=== PATIENT | male | born 1955 | race Caucasian/White ===

== ENCOUNTER 2018-07-15 16:10 | Outpatient (CLI) | payer MEDICAID, SELFPAY ==
--- NOTE | 2018-07-15 16:08 | DI.RAD_ITS ---
SYMPTOM/DIAGNOSIS: SOB, R06.02 PA AND LATERAL CHEST: No priors. The heart is normal in size. The lungs are clear. The mediastinal structures and pleura appear intact. CONCLUSION: Normal chest.
== END 2018-07-15 16:30 ==
PROVIDERS: PCP Family Medicine; Visit Provider Family Medicine
DX: R06.02 Shortness of breath (principal)
CPT/HCPCS: 71046

== ENCOUNTER 2019-01-10 02:53 | Outpatient (CLI) | payer MEDICAID, SELFPAY ==
[2019-01-10 09:54] LABS: ALT 28 U/L (12-78); AST 15 U/L (15-37); Albumin 3.7 g/dL (3.4-5.0); Alkaline Phosphatase 99 U/L (46-116); Anion Gap 8.8 mmol/L (3-11); BUN 15 mg/dL (7-18); Bilirubin, Total 0.7 mg/dL (0.2-1.0); CO2 28.2 mmol/L (21.0-32.0); CREATININE 0.81 mg/dL (0.70-1.30); Calcium 9.6 mg/dL (8.5-10.1); Chloride 99 mmol/L (98-107); Cholesterol 213 mg/dL (50-200); Glucose 101 mg/dL (70-100); HDL Cholesterol 42 mg/dL (40-60); LDL CHOLESTEROL 148 mg/dL (<100); Sodium 136 mmol/L (136-145); Total Protein 7.6 g/dL (6.4-8.2); Triglyceride 119 mg/dL (30-150)
== END 2019-01-10 03:13 ==
PROVIDERS: PCP Family Medicine; Visit Provider Family Medicine
DX: I10 Essential (primary) hypertension (principal)
CPT/HCPCS: 36415; 80053; 80061; 83721

== ENCOUNTER 2021-01-15 02:07 | Outpatient (CLI) | payer MEDICAID, SELFPAY ==
[2021-01-15 12:55] LABS: ALT 29 U/L (16-63); AST 14 U/L (15-37); Albumin 3.9 g/dL (3.4-5.0); Alkaline Phosphatase 104 U/L (46-116); Anion Gap 11.6 mmol/L (3-11); BUN 17 mg/dL (7-18); Bilirubin, Total 0.7 mg/dL (0.2-1.0); CO2 27.4 mmol/L (21.0-32.0); CREATININE 0.9 mg/dL (0.70-1.30); Calcium 9.7 mg/dL (8.5-10.1); Calculated LDL 140 mg/dL (<100); Chloride 99 mmol/L (98-107); Cholesterol 195 mg/dL (<200); Glucose 117 mg/dL (74-106); HDL Cholesterol 41 mg/dL (40-60); Potassium 3.5 mmol/L (3.5-5.1); Sodium 138 mmol/L (136-145); Total Protein 7.6 g/dL (6.4-8.2); Triglyceride 74 mg/dL (<150)
[2021-01-15 18:31] LABS: PSA, Screening 5.1 ng/mL (0.0-4.5)
== END 2021-01-15 02:08 | disposition home or self-care (01) ==
LOC: LOS 02:07
PROVIDERS: PCP Family Medicine; Visit Provider Family Medicine
DX: I10 Essential (primary) hypertension (principal); N40.0 Benign prostatic hyperplasia without lower urinary tract symptoms; Z12.5 Encounter for screening for malignant neoplasm of prostate
CPT/HCPCS: 36415; 80053; 80061; 84153

== ENCOUNTER 2021-02-05 15:37 | Outpatient (CLI) | payer MEDICAID, SELFPAY ==
--- NOTE | 2021-02-05 15:30 | RT.EKG_ITS ---
APPROVED REPORT Exam: Resting ECG Patient Location: O HR:76 bpm ECG Measurements Heart Rate 76 AXIS DC [id number] P [id number] QRSd 119 QRS -12 QT 412 T 18 QTc 464 Conclusion Atrial fibrillation...? atrial activity Nonspecific intraventricular conduction delay...QRSd >115mS, not LBBB/RBBB Low voltage, extremity leads...all extremity leads <0.5mV Borderline ST depression, anterolateral leads...ST <-0.07mV, I aVL V2-V6
== END 2021-02-05 15:38 | disposition home or self-care (01) ==
LOC: DI.CM 15:38
PROVIDERS: PCP Family Medicine; Visit Provider Family Medicine
DX: I10 Essential (primary) hypertension (principal)
CPT/HCPCS: 93010

== ENCOUNTER 2021-02-13 01:55 | Outpatient (CLI) | payer MEDICAID, SELFPAY ==
--- NOTE | 2021-02-13 08:22 | DI.US_ITS ---
APPROVED REPORT EXAM: Comprehensive 2D, Doppler, and color-flow Echocardiogram Patient Location: Out-Patient Teaching Pastor: Selena Bryan RDCS (AE) Indications: Atrial Fibrillation, new onset Other Information Study Quality: Good Conclusion Normal left ventricular wall thickness and chamber size. Estimated ejection fraction is 60%. There are no segmental wall motion abnormalities Normal right ventricular size and systolic function Borderline dilated left atrium. Right atrium is normal in size Normal trileaflet aortic valve without stenosis or regurgitation Mildly thickened mitral leaflets with mild regurgitation Normal tricuspid valve with mild regurgitation and normal estimated right ventricular systolic pressu re Normal pulmonic valve with trace regurgitation There is a patent foramen ovale with trace left to right flow Wall motion Left Ventricle The left ventricle is normal size. The left ventricular systolic function is normal. The left ventric ular ejection fraction is within the normal range. There is normal left ventricular wall thickness. T here is normal LV segmental wall motion. There is no ventricular septal defect visualized. LVEF is 59 %. Right Ventricle The right ventricle is normal size. The right ventricular systolic function is normal. The RVSP is 19 .3 mmHg. Atria Left atrium is borderline dilated. The right atrium size is normal. Doppler suggests left to right in teratrial shunt. Aortic Valve The aortic valve is normal in structure. Aortic valve is trileaflet. There is no aortic valvular sten osis. No aortic regurgitation is present. Mitral Valve Mildly thickened mitral leaflets No evidence of mitral valve stenosis. Mild mitral regurgitation. Tricuspid Valve The tricuspid valve is normal in structure. There is no tricuspid valve stenosis. Mild tricuspid regu rgitation. Pulmonic Valve The pulmonary valve is normal in structure. There is no pulmonic valvular stenosis. Trace pulmonic re gurgitation. Great Vessels The aortic root is normal in size. The ascending aorta is normal in size. Aortic arch is normal in ca liber. IVC is normal in size and collapses >50% with inspiration. Pericardium There is no pericardial effusion. 2D Dimensions IVSD d PLAX 1.01 cm M: 0.6-1.2 LV Vol A2C d MOD 116.9 mL LVPW d PLAX 1.03 cm M: 0.6 - 1.2 LV Vol A4C d MOD 122.6 mL LVID d PLAX 5.24 cm M: 4.2 - 5.8 LA vol/ BSA A2C s A-L 45.2 mL/m2 LVDs 3.65 cm M: 2.5 - 4.0 LA vol/ BSA A4C s A-L 35.5 mL/m2 Ao Root d 3.01 cm M: 3.1 - 3.7 LA Vol/ BSA Biplane s A-L 40.3 mL/m2 RA Area A4C 21.28 cm2 LA Area A4C s MOD 24.70 cm2 RA Vol/ BSA A4C s A-L 28.9 mL/m2 LA Area A2C s MOD 28.06 cm2 Ao Asc Diam d 3.02 cm M: 2.6 - 3.4 LV EF A4C MOD 59.1 % LV EF Teichholz 56.1 % LV EF A2C MOD 58.0 % LVEF ([facility]) 57.93 % M: 52 - 72 LV EF Biplane MOD 57.9 % LV Volume 91.78 mL M: 62 - 150 SV 72.22 mL LV Volume Index 43.49 mL/m2 M: 34 - 74 SV Index 34.11 mL/m2 LV Vol Biplane MOD 124.7 mL FS 29.45 % M-Mode TAPSE 2.01 cm (M/F) >1.7 LV Diastology MV E' medial 0.152 (>0.07 m/s) MV E Vmax 0.98 (0.4-1.3 m/s) LV E/e MED 6.45 (<14) MV E' lateral 0.175 (>0.1 m/s) LV E/e LAT 5.60 (<14) MV E/E' medial 6.49 MV E/E' lateral 5.63 Aortic Valve LVOT Area 3.77 cm2 AoV Area Vmax 2.37 cm2 LVOT Vmax 0.87 m/s AoV Area/ BSA (Vmax) 1.12 cm2/m2 LVOT Mean Nathanael. 0.54 m/s LUCERO Mean Nathanael. 1.98 cm2 LVOT Peak Grad 3.1 mmHg LUCERO Mean Nathanael. Index 0.94 cm2/m2 LVOT Mean Grad 1.4 mmHg LVOT VTI 0.164 m LVOT Diam s 2.15 cm AoV Vmax 1.39 m/s Velocity Ratio 0.62 AoV Mean Nathanael. 1.03 m/s AoV Peak Grad 7.7 mmHg LVOT SV 61.66 mL AoV Mean Grad 4.6 mmHg AoV VTI 0.272 m AoV Area VTI 2.26 cm2 AoV Area/ BSA (VTI) 1.07 cm/m2 Mitral Valve MV DT 217 (160-240 msec) MR Vmax 4.82 m/s MV PHT 63 msec MR VTI 1.625 m MV Area PHT 3.49 cm2 MR Peak Grad 92.8 mmHg MV VTI 0.132 m MR Mean Grad 72.1 mmHg MV VTI Annulus 0.139 m MV Area VTI 4.88 (4.0-6.0 cm2) Pulmonary Valve PV Vmax 0.94 (0.5-1.5 m/s) RVOT Peak Gr. 1.71 mmHg PV Peak Grad 3.5 mmHg RVOT Mean Gr. 0.80 mmHg PV Mean Grad 1.7 mmHg RVOT VTI 0.134 m PV VTI 0.172 m RVOT Vmax 0.65 m/s Tricuspid Valve TR Peak Grad 16.3 mmHg TR Vmax 2.02 m/s RA Pressure 3.00 mmHg RVSP (TR) 19.3 mmHg
== END 2021-02-13 02:15 ==
PROVIDERS: PCP Family Medicine; Visit Provider Family Medicine
DX: I48.91 Unspecified atrial fibrillation (principal); I08.1 Rheumatic disorders of both mitral and tricuspid valves
CPT/HCPCS: 93306

== ENCOUNTER 2021-03-11 14:02 | Outpatient (REF) | payer MEDICAID, SELFPAY ==
[2021-03-11 22:53] LABS: PSA, Diagnostic 5.4 ng/mL (0.0-4.5)
== END 2021-03-11 14:03 | disposition home or self-care (01) ==
LOC: LBN 14:02
PROVIDERS: PCP Family Medicine; Visit Provider Nurse Practitioner Gerontology
DX: R30.0 Dysuria (principal); N40.0 Benign prostatic hyperplasia without lower urinary tract symptoms
CPT/HCPCS: 84153; 87086

== ENCOUNTER 2021-06-18 02:45 | Outpatient (CLI) | payer MEDICAID, SELFPAY ==
[2021-06-18 12:40] LABS: HCT 44.2 % (40.0-50.0); HGB 15.1 g/dL (13.5-17.5); MCH 30.4 pg (27.0-33.0); MCHC 34.2 % (32.0-36.0); MCV 89.1 fL (80-95); MPV 9.5 fL (8.0-11.0); Platelet Count 286 10^3/uL (130-400); RBC 4.96 10^6/uL (4.36-5.78); RDW 12.5 % (11.8-14.1); RDW-SD 41.1 fL; WBC 10.43 10^3/uL (4.4-10.8)
[2021-06-18 14:42] LABS: TSH (W/Ref FT4) 4.51 uIU/mL (0.36-3.74)
[2021-06-18 15:05] LABS: FREE T4 0.91 ng/dL (0.76-1.46)
== END 2021-06-18 02:46 | disposition home or self-care (01) ==
LOC: LBO 02:45
PROVIDERS: PCP Family Medicine; Visit Provider Nurse Practitioner Gerontology
DX: I48.91 Unspecified atrial fibrillation (principal); N40.1 Benign prostatic hyperplasia with lower urinary tract symptoms; R35.1 Nocturia; N13.8 Other obstructive and reflux uropathy
CPT/HCPCS: 36415; 85027; 84154; 84439; 84443

== ENCOUNTER 2021-10-24 01:58 | Outpatient (CLI) | payer MEDICAID, SELFPAY ==
[2021-10-24 10:39] LABS: Source Nasal/Nares
[2021-10-25 13:55] LABS: COVID-19 PCR Negative (Negative)
== END 2021-10-24 01:59 | disposition home or self-care (01) ==
LOC: LBO 01:58
PROVIDERS: PCP Family Medicine; Visit Provider Student in an Organized Health Care Education/Training Program
DX: Z20.822 Contact with and (suspected) exposure to COVID-19 (principal)
CPT/HCPCS: 87635

== ENCOUNTER 2021-10-27 13:18 | Day surgery (SDC) | payer MEDICAID, SELFPAY ==
--- NOTE | 2021-10-27 11:05 | PDOC.DSDIS_ITS ---
Discharge Plan Disposition Patient Disposition: HOME Condition: Good Discharge Details Reason For Visit: Right Ring Finger Dupuytren's Contracture Release Attending Provider: Ramana Proctor Primary Care Provider: Min Daley Home Meds and New Rx's Prescriptions: New acetaminophen 500 mg capsule 1,000 mg PO Q8H PRN PRNQty: 15 RF: 0 ibuprofen 600 mg tablet 600 mg PO TID Qty: 15 RF: 0 hydrocodone-acetaminophen 5-325 mg tablet 1 tab PO Q6H PRNQty: 5 RF: 0 Continued chlorthalidone 25 mg tablet 25 mg PO DAILY Qty: 90 RF: 4 metoprolol succinate 50 mg tablet extended release 24 hr 50 mg PO DAILY Qty: 90 RF: 4 trazodone 100 mg tablet 100 mg PO QHS PRN (Reason: sleep) Qty: 25 RF: 2 oxybutynin chloride 5 mg tablet 10 mg PO QHS Qty: 180 RF: 3 multivitamin with minerals [Multiple Vitamin-Minerals] 1 EACH tablet 1 ea PO DAILY RF: 0 amlodipine 5 mg tablet 5 mg PO DAILY Qty: 90 RF: 3 tamsulosin 0.4 mg capsule 0.4 mg PO HS RF: 0 Discontinued acetaminophen 500 mg capsule 500 mg PO Q6H PRNRF: 0 Discharge Instructions Additional Instructions: Dupuytren's Contracture Discharge Instructions Activity: You may use your fingers for light activity. You should limit any excessive motion or forceful gripping until the sutures have been removed. Dressings: You should keep the initial surgical dressing in place for at least 3 days. You may remove your dressings and get the wound wet after 3 days. You should keep the dressings and the wound clean at all times. You may keep the initial dressing in place until your follow-up but keep the wound covered with light gauze until the sutures are removed. Medications: - You should take Tylenol and Ibuprofen around the clock as prescribed or per customer support advisor's recommendations. - You have Hydrocodone prescribed for breakthrough pain control. Take only as needed and limit use as much as possible. This may cause constipation. Follow-up: 7-10 days for wound check and suture removal. Referrals: Ramana Proctor MD [ [facility] STAFF PHYSICIAN] - Activity:: Activity as Tolerated Remove Dressings/Wound Care:: 72 hours Shower/Bathe:: 72 hours Diet:: As Tolerated Discharge Orders Discharge Orders: Discharge Order (Routine); Ordered 10/27/21 Ordered By: Mary Joyce DS: Diagnosis Discharge Diagnosis (1) Dupuytren's contracture of right hand: Status: Acute
[2021-10-27 13:59] VITALS: BP 147/105; PULSE 86; RESP 16; TEMP 36.4; O2SAT 98
[2021-10-27] MEDS: Lactated Ringers 1,000 ML 80 ML IV (14:27)
--- NOTE | 2021-10-27 14:29 | W.ANESPRE ---
General Info Date of Service Date Performed: 10/27/21 Height: 5 ft 9 in Weight: 97.3 kg Body Mass Index (BMI): 31.6 Surgical Procedure: Operation Date: 10/27/21 17:10 Proposed Procedures Side Surgeon p RRF Hand Dupuytrens Release Right Ramana Proctor MD Actual Procedures Side Surgeon p RRF Hand Dupuytrens Release Right Ramana Proctor MD Meds Allergies and Home Medications Allergies Allergy/AdvReac Type Severity Reaction Status Date / Time lisinopril AdvReac Mild COUGH Verified 10/27/21 13:55 [email or web address] [From Myrbetriq] AdvReac ? retention Unverified 10/27/21 13:55 Home Medication Medication Instructions Recorded multivitamin with minerals 1 ea PO DAILY 05/26/17 [Multiple Vitamin-Minerals] chlorthalidone 25 mg tablet 25 mg PO DAILY #90 tab 02/05/21 metoprolol succinate 50 mg 50 mg PO DAILY #90 tab 02/05/21 tablet,extended release 24 hr trazodone 100 mg tablet 100 mg PO QHS PRN #25 tab 06/09/21 amlodipine 5 mg tablet 5 mg PO DAILY #90 tab 08/06/21 oxybutynin chloride 5 mg tablet 10 mg PO QHS #180 tab 08/19/21 tamsulosin 0.4 mg PO HS 10/22/21 acetaminophen 1,000 mg PO Q8H PRN PRN #15 cap 10/27/21 hydrocodone-acetaminophen 1 tab PO Q6H PRN #5 tab 10/27/21 ibuprofen 600 mg PO TID #15 tab 10/27/21 Current Visit Medications: Current Medications Generic Name Dose Route Start Last Admin Trade Name Freq PRN Reason Stop Dose Admin Acetaminophen 650 mg 10/27/21 11:03 Acetaminophen 325 Mg Tab PO Q4H PRN PRN Ringer's Solution 1,000 mls @ 80 mls/hr 10/27/21 06:00 10/27/21 14:27 IV 11/22/21 23:59 80 mls/hr INFUSION EBENEZER Administration Ondansetron HCl 4 mg/ Sodium 52 mls @ 200 mls/hr 10/27/21 11:03 Chloride IVPB Q6H PRN PRN IV Miscellaneous Supplies 1 each 10/27/21 06:00 Iv Access IV 11/22/21 23:59 DIRECTED EBENEZER Oxycodone HCl 5 mg 10/27/21 11:03 Oxycodone 5 Mg Tab PO Q3H PRN PRN Pain Sodium Chloride 0 ml 10/27/21 06:00 Normal Saline Flush 10 Ml Syr IV 11/22/21 23:59 PRN PRN Sodium Chloride 0 ml 10/27/21 06:00 Normal Saline 10 Ml Vial IJ 11/22/21 23:59 DIRECTED PRN Sterile Water 0 ml 10/27/21 06:00 Water,Injection,Sterile 10 Ml Vial IJ 11/22/21 23:59 DIRECTED PRN PFSH Active Problems Active Problems: Problem Status Onset Code Benign prostatic hyperplasia 01/20/17 N40.0 Dupuytren's contracture of both hands M72.0 Essential hypertension 08/14/13 I10 Insomnia G47.00 Tubular adenoma of colon D12.6 Smoker F17.200 Premature beats I49.49 Atrial fibrillation, controlled I48.91 Nocturia R35.1 BPH w urinary obs/LUTS N40.1, N13.8 Dupuytren's contracture of left hand M72.0 Dupuytren's contracture of right hand M72.0 Medical History Medical History (Updated 10/27/21 @ 13:54 by Maricruz Gamble RN) Acute meniscal tear, medial Spondylolysis of cervical spine Surgical History Surgical History History of total knee arthroplasty bilateral knees S/P rotator cuff repair right Tobacco Smoking/Tobacco Use Status: Former Tobacco Use Passive smoking exposure: Yes Second hand exposure: No Alcohol Alcohol Intake: current Alcohol intake frequency: a few times a month Alcohol type: beer Substance Use Substance use: Never Substance use type: does not use Vital Signs and Lab Results Vital Signs Most Recent Vital Signs in EMR: Most Recent Vital Signs Temp Pulse Resp BP Pulse Ox 36.4 C L 86 16 147/105 H 98 10/27/21 13:59 10/27/21 13:59 10/27/21 13:59 10/27/21 13:59 10/27/21 13:59 Lab Results Blood Type / Crossmatch: No Data to Display Complete Blood Count: No Data to Display Complete Metabolic Panel: No Data to Display Liver Function Panel: No Data to Display Coagulation Panel: No Data to Display Cardiac Panel: No Data to Display Arterial Blood Gas: No Data to Display Venous Blood Gas: No Data to Display Pancreas Panel: No Data to Display Thyroid Panel: No Data to Display Infectious Disease: Coronavirus (COVID-19)(PCR) Negative (Negative) 10/24/21 08:54 10/24/21 Coronavirus 2019 Source Nasal/Nares 10/24/21 08:54 10/24/21 Blood Cultures: No Data to Display Toxicology Panel: No Data to Display Imaging and Studies Imaging and Studies Study information below may be from another EMR and interpreted by another provider. Please see original notes in EMR for more complete details. EKG Summary: Conclusion Atrial fibrillation...? atrial activity Nonspecific intraventricular conduction delay...QRSd >115mS, not LBBB/RBBB Low voltage, extremity leads...all extremity leads <0.5mV Borderline ST depression, anterolateral leads...ST <-0.07mV, I aVL V2-V6 Echocardiogram Summary: Conclusion Normal left ventricular wall thickness and chamber size. Estimated ejection fraction is 60%. There are no segmental wall motion abnormalities Normal right ventricular size and systolic function Borderline dilated left atrium. Right atrium is normal in size Normal trileaflet aortic valve without stenosis or regurgitation Mildly thickened mitral leaflets with mild regurgitation Normal tricuspid valve with mild regurgitation and normal estimated right ventricular systolic pressure Normal pulmonic valve with trace regurgitation There is a patent foramen ovale with trace left to right flow Anesthesia Assessment and Plan Anesthesia History Personal History: No History of Anesthesia Complications Family History: No Family History of Anesthesia Complications Exercise Tolerance Exercise Tolerance: Metabolic Equivalents>4 Pertinent Negatives Pertinent Negatives: No Symptoms of GERD Cardiac & Pulmonary Exam Cardiac Exam: Normal S1/S2 Heart Sounds Pulmonary Exam: Clear Bilateral Breath Sounds Implantable Cardiac Device Does patient have a Pacemaker or an ICD?: No Airway Exam Known Difficult Airway: No Mallampati Class: 3 Mouth Opening: Narrow (< 3cm) Thyromental Distance: Greater than 3 cm Neck Range of Motion: Full ROM Neck Circumference: Normal Teeth Condition: Normal Dentition ASA Classification ASA Score: ASA 2 Emergency Case?: No NPO Status NPO Status: NPO Clears >2 hours, Solids >8 hours Anesthesia Plan Resuscitation Status: Full Code Anesthesia Technique: General Anesthesia Airway Planned: Natural Airway Monitors Used: Standard Monitors
[2021-10-27 14:30] VITALS: BMI 31.6
--- NOTE | 2021-10-27 14:30 | W.PREOPHP ---
Documented by User: GRACIE Milligan 10/27/21 14:36 Assessment and Plan Assessment and plan (1) Dupuytren's contracture of right hand: Status: Acute Assessment and plan: Grover is a 65 year old male with a Dupuytren's contracture of the right ring finger. This significantly interferes with his ability to use his right ring finger and contracture is greater than 90degrees of flexion at the MCP. He elects surgical intervention at this time for definitive therapy of his symptoms. Possible complications of the procedure were discussed. These include but are not limited to bleeding, infection, pain, stiffness, weakness, damage to nerves, damage to vessels, damage to muscle and tendon, wound healing complications. After a review of the presented information and risks the patient was given the opportunity to ask questions, all of which were answered to satisfaction. The patient elicits to proceed with the procedure. We will plan to procedure with scheduled procedure. History of Present Illness History of Present Illness Chief Complaint: Dupuytren's contractures of the right ring finger Narrative: Grover is a 65 year old male with a Dupuytren's contracture of the right ring finger. He has previously been seen by myself and Dr. Proctor and surgical release of the contracture was discussed. He elects to undergo surgical intervention at this time for definitive therapy of his symptoms. Review of Systems Eyes Eyes: Denies change in vision ENT Ears, Nose, Mouth, and Throat: Denies dental pain, Denies dizziness, Denies mouth lesions and Denies sore throat Cardiovascular Cardiovascular: Denies chest pain, Denies palpitations and Denies dyspnea Respiratory Respiratory: Denies cough and Denies dyspnea Gastrointestinal Gastrointestinal: Denies abdominal pain, Denies melena, Denies hematochezia, Denies diarrhea, Denies nausea and Denies vomiting Genitourinary Genitourinary: Denies hematuria Neurologic Neurologic: Denies dizziness Endocrine Endocrine: Denies palpitations PFSH All Active Problems (Updated 10/27/21 @ 13:54 by Maricruz Gamble RN) Benign prostatic hyperplasia (Acute 01/20/17) Dupuytren's contracture of both hands (Acute) Essential hypertension (Acute 08/14/13) Insomnia (Acute) Tubular adenoma of colon (Acute) [facility] [place] Smoker (Acute) Premature beats (Acute) Atrial fibrillation, controlled (Acute) Nocturia (Acute) BPH w urinary obs/LUTS (Acute) Dupuytren's contracture of left hand (Acute) ring finger and small finger Dupuytren's contracture of right hand (Acute) ring finger Medical History (Updated 10/27/21 @ 13:54 by Maricruz Gamble RN) Acute meniscal tear, medial Spondylolysis of cervical spine Surgical History History of total knee arthroplasty bilateral knees S/P rotator cuff repair right Family History Mother , 80's Personal history of malignant neoplasm ESOPHAGEAL Heart disease Cancer Grandfather Personal history of malignant neoplasm LUNG Grandfather Stroke Grandmother Heart disease Social History Smoking/Tobacco Use Status: Former Tobacco Use tobacco type: cigarettes Quit Date: 11/01/04 Second Hand Exposure: No Smoking risk assessment performed?: Yes Alcohol Intake: current Alcohol Intake frequency: a few times a month Alcohol type: beer Drug use: Never Substance use type: does not use Household members: significant other Housing: house Communication Needs: None Do you need help understanding health information?: Never Pets and animals: Yes Pets and animals: cat(s) Sexually active: Yes Do you think of yourself as: straight/heterosexual Current gender identity: male What is your relationship status?: living with partner How often do you talk on the phone with friends or family?: decline to answer How often do you get together with friends or relatives?: decline to answer How often do you attend orthodoxy or uatsdin services?: decline to answer Do you belong to any clubs or organized social groups?: decline to answer Panel score (0-1 are the most socially isolated patients): 1 What type of physical activity do you participate in: walking, bicycling and additional Details: working to clear land. Kayaks/hikes/bikes in the summer. 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 retention Unverified 10/27/21 13:55 Home Medications Medication Instructions Recorded Confirmed Type multivitamin with minerals 1 ea PO DAILY 05/26/17 10/27/21 History [Multiple Vitamin-Minerals] chlorthalidone 25 mg tablet 25 mg PO DAILY #90 tab 02/05/21 10/27/21 Rx metoprolol succinate 50 mg 50 mg PO DAILY #90 tab 02/05/21 10/27/21 Rx tablet,extended release 24 hr trazodone 100 mg tablet 100 mg PO QHS PRN #25 tab 06/09/21 10/27/21 Rx amlodipine 5 mg tablet 5 mg PO DAILY #90 tab 08/06/21 10/27/21 Rx oxybutynin chloride 5 mg tablet 10 mg PO QHS #180 tab 08/19/21 10/27/21 Rx tamsulosin 0.4 mg PO HS 10/22/21 10/27/21 History acetaminophen 1,000 mg PO Q8H PRN PRN #15 cap 10/27/21 Rx hydrocodone-acetaminophen 1 tab PO Q6H PRN #5 tab 10/27/21 Rx ibuprofen 600 mg PO TID #15 tab 10/27/21 Rx Exam Const General: cooperative, healthy appearing, comfortable and no acute distress Orientation: oriented x3 [facility] Head: normal to inspection, normocephalic and atraumatic Resp Effort & Inspection: normal respiratory effort, able to speak in complete sentences, no audible wheezes, no cough, no grunting and not labored Auscultation: clear to auscultation bilaterally Cardio Rate: regular rate Rhythm: regular rhythm Heart Sounds: S1 normal, S2 normal, no gallops, no murmurs and no rubs Bruits: no abdominal aortic bruits and no carotid bruits Pulses: radial pulses present Skin General skin exam: elasticity normal, no ecchymosis and no erythema Lesions: no lesions Rashes: no rashes Trauma: no lacerations or abrasions Wounds: no wounds Hair: normal Nails: normal Neuro General: patient oriented x3 Cognition: normal cognition Speech: speech normal Gait: normal gait Results Last Vital Signs Temp 97.5 F L 12/27/21 13:59 Pulse 86 10/27/21 13:59 Resp 16 10/27/21 13:59 BP 147/105 H 10/27/21 13:59 Pulse Ox 98 10/27/21 13:59 Documented by User: Ramana Proctor MD 10/27/21 14:45 Assessment and Plan Assessment and plan (1) Dupuytren's contracture of both hands: Status: Acute Assessment and plan: I interviewed and examined the patient with Nilda Joyce PA-C. I agree with the documentation as above. The assessment and plan were formulated with my direct involvement. I reviewed treatment options and he desires to proceed. I reviewed the risks of the procedure to include recurrence, bleeding, infection, pain, stiffness, damage to nerves and vessels. All of his questions were answered. Proceed with Dupuytren's release, partial palmar fasciectomy, of hte right ring finger. Ramana Proctor MD [facility] PFSH All Active Problems (Updated 10/27/21 @ 13:54 by Maricruz Gamble RN) Benign prostatic hyperplasia (Acute 01/20/17) Dupuytren's contracture of both hands (Acute) Essential hypertension (Acute 08/14/13) Insomnia (Acute) Tubular adenoma of colon (Acute) [facility] [place] Smoker (Acute) Premature beats (Acute) Atrial fibrillation, controlled (Acute) Nocturia (Acute) BPH w urinary obs/LUTS (Acute) Dupuytren's contracture of left hand (Acute) ring finger and small finger Dupuytren's contracture of right hand (Acute) ring finger Medical History (Updated 10/27/21 @ 13:54 by Maricruz Gamble RN) Acute meniscal tear, medial Spondylolysis of cervical spine Surgical History History of total knee arthroplasty bilateral knees S/P rotator cuff repair right Family History Mother , 80's Personal history of malignant neoplasm ESOPHAGEAL Heart disease Cancer Grandfather Personal history of malignant neoplasm LUNG Grandfather Stroke Grandmother Heart disease Social History Smoking/Tobacco Use Status: Former Tobacco Use tobacco type: cigarettes Quit Date: 11/01/04 Second Hand Exposure: No Smoking risk assessment performed?: Yes Alcohol Intake: current Alcohol Intake frequency: a few times a month Alcohol type: beer Drug use: Never Substance use type: does not use Household members: significant other Housing: house Communication Needs: None Do you need help understanding health information?: Never Pets and animals: Yes Pets and animals: cat(s) Sexually active: Yes Do you think of yourself as: straight/heterosexual Current gender identity: male What is your relationship status?: living with partner How often do you talk on the phone with friends or family?: decline to answer How often do you get together with friends or relatives?: decline to answer How often do you attend orthodoxy or uatsdin services?: decline to answer Do you belong to any clubs or organized social groups?: decline to answer Panel score (0-1 are the most socially isolated patients): 1 What type of physical activity do you participate in: walking, bicycling and additional Details: working to clear land. Kayaks/hikes/bikes in the summer. 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 retention Unverified 10/27/21 13:55 Home Medications Medication Instructions Recorded Confirmed Type multivitamin with minerals 1 ea PO DAILY 05/26/17 10/27/21 History [Multiple Vitamin-Minerals] chlorthalidone 25 mg tablet 25 mg PO DAILY #90 tab 02/05/21 10/27/21 Rx metoprolol succinate 50 mg 50 mg PO DAILY #90 tab 02/05/21 10/27/21 Rx tablet,extended release 24 hr trazodone 100 mg tablet 100 mg PO QHS PRN #25 tab 06/09/21 10/27/21 Rx amlodipine 5 mg tablet 5 mg PO DAILY #90 tab 08/06/21 10/27/21 Rx oxybutynin chloride 5 mg tablet 10 mg PO QHS #180 tab 08/19/21 10/27/21 Rx tamsulosin 0.4 mg PO HS 10/22/21 10/27/21 History acetaminophen 1,000 mg PO Q8H PRN PRN #15 cap 10/27/21 Rx hydrocodone-acetaminophen 1 tab PO Q6H PRN #5 tab 10/27/21 Rx ibuprofen 600 mg PO TID #15 tab 10/27/21 Rx
[2021-10-27] MEDS: Sodium Bicarbonate 50 MEQ/50 ML VIAL (14:55)
[2021-10-27 15:40] VITALS: BP 99/70; PULSE 83; RESP 16; TEMP 36.4; O2SAT 95
--- NOTE | 2021-10-27 15:46 | W.ANESPOSTOP ---
Postoperative Evaluation Date, Time and Location Date Performed: 10/27/21 Time Performed: 15:46 Patient Location: Day Surgery Unit Vital Signs Most Recent Imported Vital Signs: Most Recent Vital Signs Temp Pulse Resp BP Pulse Ox 36.4 C L 83 16 99/70 L 95 10/27/21 15:40 10/27/21 15:40 10/27/21 15:40 10/27/21 15:40 10/27/21 15:40 Pain Score Most Recent Pain Score: Most Recent Pain Score Pain Level 0 10/27/21 15:40 Assessment Mental Status: Awake (Alert & Oriented to Patient Baseline) Airway and Respiratory Function: Patent airway with normal (patient baseline) respiratory exam Cardiovascular Function: Hemodynamically Stable Hydration Status: Adequately Hydrated Nausea & Vomiting: No Nausea or Vomiting Pain: Pt. Denies Any Pain Peripheral Nerve Block: Patient did not receive a nerve block
[2021-10-27 16:10] VITALS: BP 113/76; PULSE 66; RESP 16; TEMP 36; O2SAT 99
--- NOTE | 2021-10-27 22:38 | W.PM.OP ---
Date of service: 10/27/21 Time of Service: 15:25 Operative Note Operative Note DATE OF PROCEDURE: 10/27/21 PRE-OP DIAGNOSIS: Dupuytren contracture, right ring finger and palm POST-OP DIAGNOSIS: same PROCEDURE: Partial palmar fasciectomy of the right hand including right ring finger SURGEON: Ramana Proctor ANESTHESIA TYPE: General:No Airway Refer to Anesthesia Record ESTIMATED BLOOD LOSS: 10 PATHOLOGY: none sent TOURNIQUET TIME: 0 COMPLICATIONS: None Patient was transported to: same day Patient's condition: stable Indications: I have seen Grover in clinic for symptoms of Dupuytren's contracture. He had notable prominence of the cord about his palm and extending onto the middle phalanx of the right ring finger with a PIP contracture of nearly 90 degrees and MP contracture of about 40 degrees. The symptoms had not responded to conservative measures he continued to worsen. Therefore, I offered partial palmar fasciectomy. I reviewed the risks of the procedure to include, but not limited to, bleeding, infection, pain, stiffness, incomplete release, damage to nerves or vessels, recurrence. Despite these risks, the patient elected to proceed. Findings: There is a large central cord seen within the palm which did seem to terminate at the MP joint of the ring finger with a spiral cord originating from this region and then inserting into the lateral digital sheath about the middle phalanx. The cord was dissected out completely I do not see any spiraling of the neurovascular bundle. The cord was resected and I was able to attain full range of motion of the finger. This was done without tourniquet and there is no significant bleeding. Procedure Description: Grover was greeted in the preoperative holding area where the correct side was identified and marked. The consent was reviewed with the patient and signed. All questions were answered. He was taken back to the operating room. The patient was placed into the supine position on the operating room table with the right arm on an arm board. All bony prominences were well padded. No prophylactic antibiotics were administered since this was a clean, elective hand surgical case. The right arm was then prepped with Chloraprep and draped in a standard fashion with stockinette and extremity drape. A timeout to confirm correct identity, side and site, procedure, allergies, anesthesia, and medical concerns was performed. The surgical site was marked as a Andrea type incision directly over the cord of the right ring finger and onto the palm. This proposed surgical site was then anesthetized with 1% Lidocaine with epinephrine. The incision was made through skin only, approximately 1cm. The deep tissues were dissected bluntly. The central cord of the palm was these identifiable. The skin was elevated off of the cord sharply with a scissor to fully identify the cord. This was followed from the base of the palm to the level of the MCP joint and A1 mary beth. It was dissected circumferentially such as able to see all sides and then transected the base of the palm. From a proximal distal direction was elevated out of the palm transecting any attachment fibers to it. This did not seem to end roughly at the flexor tendon sheath at the level of the A1 mary beth and the MCP joint and the proximal phalanx. This was cut sharply at this level. Connecting fibers from early natatory cords were also transected allowing the cord to be removed in whole. There was a spiral type cord moving from the distal palm over to the radial aspect of the middle phalanx. Once again, this was dissected from the skin overlying it. There is no opposing neurovascular structures able to identify. Once again, the cord was transected proximally and elevated out of the hand from proximal distal direction. Dissection was carried out carefully along the proximal phalanx looking for any attached neurovascular structures. This was then carried out all the way to the lateral digital sheath where it was transected. This was then removed in whole. At this point we now had full extension of the ring finger at the level MP joint and the PIP joint. The wound was thoroughly irrigated. No tourniquet was used and there is no significant bleeding. The wound was once again irrigated and the skin was closed with a 4-0 Nylon. This was dressed with gauze and a Conform dressing. The patient tolerated the procedure well and was returned to the Same Day Surgery area in a stable condition suffering no known complication.
== END 2021-10-27 16:25 | disposition home or self-care (01) ==
LOC: SUR 13:18
PROVIDERS: PCP Family Medicine; Visit Provider Student in an Organized Health Care Education/Training Program
PROC: (CPT 26045; principal; 2021-10-27 17:00)
DX: M72.0 Palmar fascial fibromatosis [Dupuytren] (principal); I10 Essential (primary) hypertension; I48.91 Unspecified atrial fibrillation
CPT/HCPCS: 26123

== ENCOUNTER 2021-12-08 03:02 | Outpatient (CLI) | payer MEDICAID, SELFPAY ==
[2021-12-08 10:15] LABS: Source Nasal/Nares
[2021-12-08 12:57] LABS: COVID-19 PCR Negative (Negative)
== END 2021-12-08 03:03 | disposition home or self-care (01) ==
LOC: LBO 03:02
PROVIDERS: PCP Family Medicine; Visit Provider Student in an Organized Health Care Education/Training Program
DX: Z20.822 Contact with and (suspected) exposure to COVID-19 (principal)
CPT/HCPCS: 87635

== ENCOUNTER 2021-12-10 11:56 | Day surgery (SDC) | payer MEDICAID, SELFPAY ==
--- NOTE | 2021-12-10 11:44 | PDOC.DSDIS_ITS ---
Discharge Plan Disposition Patient Disposition: HOME Condition: Good Discharge Details Reason For Visit: Dupuytrens contracture of left ring+little fingers Attending Provider: Ramana Proctor Primary Care Provider: Min Daley Home Meds and New Rx's Prescriptions: New hydrocodone-acetaminophen 5-325 mg tablet 1 tab PO Q6H PRN (Reason: severe pain) Qty: 4 RF: 0 Continued chlorthalidone 25 mg tablet 25 mg PO DAILY Qty: 90 RF: 4 metoprolol succinate 50 mg tablet extended release 24 hr 50 mg PO DAILY Qty: 90 RF: 4 trazodone 100 mg tablet 100 mg PO QHS PRN (Reason: sleep) Qty: 25 RF: 2 oxybutynin chloride 5 mg tablet 10 mg PO QHS Qty: 180 RF: 3 Multiple Vitamin-Minerals 1 EACH tablet 1 ea PO DAILY RF: 0 amlodipine 5 mg tablet 5 mg PO DAILY Qty: 90 RF: 3 tamsulosin 0.4 mg capsule 0.4 mg PO HS RF: 0 acetaminophen 500 mg capsule 1,000 mg PO Q8H PRN PRNQty: 15 RF: 0 ibuprofen 600 mg tablet 600 mg PO TID Qty: 15 RF: 0 Discharge Instructions Additional Instructions: Dupuytren's Contracture Discharge Instructions Activity: You may use your fingers for light activity. You should limit any excessive motion or forceful gripping until the sutures have been removed. Dressings: You should keep the initial surgical dressing in place for at least 3 days. You may remove your dressings and get the wound wet after 3 days. You should keep the dressings and the wound clean at all times. You may keep the initial dressing in place until your follow-up but keep the wound covered with light gauze until the sutures are removed. Medications: - You should take Tylenol and Ibuprofen around the clock as prescribed or per plant technical specialist's recommendations. - You have Hydrocodone prescribed for breakthrough pain control. Take only as needed and limit use as much as possible. This may cause constipation. Follow-up: 7-10 days for wound check and suture removal. Referrals: Ramana Proctor MD [ [facility] STAFF PHYSICIAN] - Activity:: Activity as Tolerated Remove Dressings/Wound Care:: 72 hours Shower/Bathe:: 72 hours Diet:: As Tolerated Discharge Orders Discharge Orders: Discharge Order (Routine); Ordered 12/10/21 Ordered By: Caroline Burns DS: Diagnosis Discharge Diagnosis (1) Dupuytren's contracture of left hand: Status: Acute
--- NOTE | 2021-12-10 11:48 | HPE_ITS ---
Documented by User: Caroline Burns 12/10/21 13:30 Assessment and Plan Assessment and plan (1) Dupuytren's contracture of left hand: Status: Acute Assessment and plan: Plan: Educated patient on surgery covering surgical technique, recovery process, benefits and risks including but not limited to risk of infection, blood clot, damage to soft tissue/blood vessels/nerves in detail. After discussion patient gives verbal understanding of risks and elects to proceed with scheduling surgery. Patient had opportunity to have questions answered to their satisfaction. They will contact office if issues arise. Patient will continue to be scheduled for left Dupuyren's contracture with Dr. Proctor History of Present Illness Narrative: Mr. Alan is a 66-year-old male who presents to hospital for surgical release of Dupuytren's contracture involving the left ring and little fingers. Patient had history of right Dupuytren's contracture that was treated surgically in early November which he has done well from. Reports over the past year has had increased stiffness and soreness along his left little and ring fingers that have been interfering with desired activity including playing guitar and mandolin. Due to his diagnosis, discomfort and restricted motion he was offered and elected to proceed with surgical intervention. Pertinent Surgical Information Denies past medical history of: stroke, angina, asthma, COPD, renal issues, liver issues, gastrointestinal issues Review of Systems Cardiovascular Cardiovascular: Denies chest pain and Denies dyspnea Respiratory Respiratory: Denies cough and Denies dyspnea PFSH All Active Problems Benign prostatic hyperplasia (Acute 01/20/17) Essential hypertension (Acute 08/14/13) Insomnia (Acute) Tubular adenoma of colon (Acute) [facility] Smoker (Acute) Premature beats (Acute) Atrial fibrillation, controlled (Acute) Nocturia (Acute) BPH w urinary obs/LUTS (Acute) Dupuytren's contracture of left hand (Acute) ring finger and small finger Medical History Acute meniscal tear, medial Spondylolysis of cervical spine Surgical History (Updated 12/10/21 @ 12:18 by Monica Ricci RN) Dupuytren's contracture of right hand ring finger Status post release DOS: 10/27/2021 History of total knee arthroplasty bilateral knees Hx of colonoscopy S/P rotator cuff repair right Family History Mother , 80's Personal history of malignant neoplasm ESOPHAGEAL Heart disease Cancer Grandfather Personal history of malignant neoplasm LUNG Grandfather Stroke Grandmother Heart disease Social History Smoking/Tobacco Use Status: Former Tobacco Use tobacco type: cigarettes Quit Date: 11/01/04 Second Hand Exposure: No Smoking risk assessment performed?: Yes Alcohol Intake: current Alcohol Intake frequency: a few times a month Alcohol type: beer Drug use: Never Substance use type: does not use Household members: significant other Housing: house Communication Needs: None Do you need help understanding health information?: Never Pets and animals: Yes Pets and animals: cat(s) Sexually active: Yes Do you think of yourself as: straight/heterosexual Current gender identity: male What is your relationship status?: living with partner How often do you talk on the phone with friends or family?: decline to answer How often do you get together with friends or relatives?: decline to answer How often do you attend hinduism or moravian services?: decline to answer Do you belong to any clubs or organized social groups?: decline to answer Panel score (0-1 are the most socially isolated patients): 1 What type of physical activity do you participate in: walking, bicycling and additional Details: working to clear land. Kayaks/hikes/bikes in the summer. Frequency: daily Bibiana/Quaker: No preference Seatbelt use: always Drive intox or ride w/intox local owner operator truck driver: No Do you feel safe at home: Yes Do you feel safe in your relationship?: Yes Meds Allergies and Home Medications Allergies Allergy/AdvReac Type Severity Reaction Status Date / Time lisinopril AdvReac Mild COUGH Verified 12/10/21 12:18 [email or web address] [From Myrbetriq] AdvReac ? retention Unverified 12/10/21 12:18 Home Medications Medication Instructions Recorded Confirmed Type Multiple Vitamin-Minerals 1 ea PO DAILY 05/26/17 12/10/21 History chlorthalidone 25 mg tablet 25 mg PO DAILY #90 tab 04/07/21 02/09/22 Rx metoprolol succinate 50 mg 50 mg PO DAILY #90 tab 02/05/21 12/10/21 Rx tablet,extended release 24 hr trazodone 100 mg tablet 100 mg PO QHS PRN #25 tab 06/09/21 12/10/21 Rx amlodipine 5 mg tablet 5 mg PO DAILY #90 tab 08/06/21 12/10/21 Rx oxybutynin chloride 5 mg tablet 10 mg PO QHS #180 tab 08/19/21 12/10/21 Rx tamsulosin 0.4 mg PO HS 10/22/21 12/10/21 History acetaminophen 1,000 mg PO Q8H PRN PRN #15 cap 10/27/21 12/10/21 Rx ibuprofen 600 mg PO TID #15 tab 10/27/21 12/10/21 Rx hydrocodone-acetaminophen 1 tab PO Q6H PRN #4 tab 12/10/21 Rx Exam Const General: cooperative and no acute distress Resp Effort & Inspection: normal respiratory effort and able to speak in complete sentences Auscultation: clear to auscultation bilaterally, no rales, no rhonchi and no wheezes Cardio Heart Sounds: S1 normal, S2 normal and no murmurs Pulses: radial pulses present bilaterally Documented by User: Ramana Proctor MD 12/10/21 15:21 Assessment and Plan Assessment and plan (1) Dupuytren's contracture of left hand: Status: Acute Assessment and plan: I interviewed and examined the patient with Caroline Burns PA-C. I agree with the documentation as above. The assessment and plan were formulated with my direct involvement. Grover is a 66-year-old who has been seen previously for his Dupuytren's contracture of both hands. He is status post partial palmar fasciectomy on the right side with excellent results. He has a prominent cord and nodule about the left hand both the ring finger and little finger involved. I had previously discussed removing this with him in the office. He elects to proceed today. He has had no Covid contacts. He has no chest pain shortness of breath. He has no medical issues. Once again I discussed Dupuytren's release with him. I discussed the risk to include bleeding, infection, pain, stiffness, skin healing difficulties, need for repeat procedures, recurrence, damage to nerves and vessels. Despite these risk, he elects to proceed. Ramana Proctor MD FAAOS FAAHKS PFSH All Active Problems Benign prostatic hyperplasia (Acute 01/20/17) Essential hypertension (Acute 08/14/13) Insomnia (Acute) Tubular adenoma of colon (Acute) [facility] Smoker (Acute) Premature beats (Acute) Atrial fibrillation, controlled (Acute) Nocturia (Acute) BPH w urinary obs/LUTS (Acute) Dupuytren's contracture of left hand (Acute) ring finger and small finger Medical History Acute meniscal tear, medial Spondylolysis of cervical spine Surgical History (Updated 12/10/21 @ 12:18 by Monica Ricci RN) Dupuytren's contracture of right hand ring finger Status post release DOS: 10/27/2021 History of total knee arthroplasty bilateral knees Hx of colonoscopy S/P rotator cuff repair right Family History Mother , 80's Personal history of malignant neoplasm ESOPHAGEAL Heart disease Cancer Grandfather Personal history of malignant neoplasm LUNG Grandfather Stroke Grandmother Heart disease Social History Smoking/Tobacco Use Status: Former Tobacco Use tobacco type: cigarettes Quit Date: 11/01/04 Second Hand Exposure: No Smoking risk assessment performed?: Yes Alcohol Intake: current Alcohol Intake frequency: a few times a month Alcohol type: beer Drug use: Never Substance use type: does not use Household members: significant other Housing: house Communication Needs: None Do you need help understanding health information?: Never Pets and animals: Yes Pets and animals: cat(s) Sexually active: Yes Do you think of yourself as: straight/heterosexual Current gender identity: male What is your relationship status?: living with partner How often do you talk on the phone with friends or family?: decline to answer How often do you get together with friends or relatives?: decline to answer How often do you attend hinduism or moravian services?: decline to answer Do you belong to any clubs or organized social groups?: decline to answer Panel score (0-1 are the most socially isolated patients): 1 What type of physical activity do you participate in: walking, bicycling and additional Details: working to clear land. Kayaks/hikes/bikes in the summer. Frequency: daily Bibiana/Quaker: No preference Seatbelt use: always Drive intox or ride w/intox local owner operator truck driver: No Do you feel safe at home: Yes Do you feel safe in your relationship?: Yes Meds Allergies and Home Medications Allergies Allergy/AdvReac Type Severity Reaction Status Date / Time lisinopril AdvReac Mild COUGH Verified 12/10/21 12:18 [email or web address] [From Myrbetriq] AdvReac ? retention Unverified 12/10/21 12:18 Home Medications Medication Instructions Recorded Confirmed Type Multiple Vitamin-Minerals 1 ea PO DAILY 05/26/17 12/10/21 History chlorthalidone 25 mg tablet 25 mg PO DAILY #90 tab 02/05/21 12/10/21 Rx metoprolol succinate 50 mg 50 mg PO DAILY #90 tab 02/05/21 12/10/21 Rx tablet,extended release 24 hr trazodone 100 mg tablet 100 mg PO QHS PRN #25 tab 06/09/21 12/10/21 Rx amlodipine 5 mg tablet 5 mg PO DAILY #90 tab 08/06/21 12/10/21 Rx oxybutynin chloride 5 mg tablet 10 mg PO QHS #180 tab 08/19/21 12/10/21 Rx tamsulosin 0.4 mg PO HS 10/22/21 12/10/21 History acetaminophen 1,000 mg PO Q8H PRN PRN #15 cap 10/27/21 12/10/21 Rx ibuprofen 600 mg PO TID #15 tab 10/27/21 12/10/21 Rx hydrocodone-acetaminophen 1 tab PO Q6H PRN #4 tab 12/10/21 Rx
[2021-12-10 12:09] VITALS: BP 128/98; PULSE 68; RESP 17; TEMP 36.4; O2SAT 99
[2021-12-10] MEDS: Lactated Ringers 1,000 ML 80 ML IV (12:16)
--- NOTE | 2021-12-10 13:22 | W.ANESPRE ---
General Info Date of Service Date Performed: 12/10/21 Height: 5 ft 9 in Weight: 99.9 kg Body Mass Index (BMI): 32.5 Surgical Procedure: Operation Date: 12/10/21 12:55 Proposed Procedures Side Surgeon p Hand Dupuytrens Contracture Release LRF,LLF Left Ramana Proctor MD Meds Allergies and Home Medications Allergies Allergy/AdvReac Type Severity Reaction Status Date / Time lisinopril AdvReac Mild COUGH Verified 12/10/21 12:18 [email or web address] [From Myrbetriq] AdvReac ? retention Unverified 12/10/21 12:18 Home Medication Medication Instructions Recorded Multiple Vitamin-Minerals 1 ea PO DAILY 05/26/17 chlorthalidone 25 mg tablet 25 mg PO DAILY #90 tab 02/05/21 metoprolol succinate 50 mg 50 mg PO DAILY #90 tab 02/05/21 tablet,extended release 24 hr trazodone 100 mg tablet 100 mg PO QHS PRN #25 tab 06/09/21 amlodipine 5 mg tablet 5 mg PO DAILY #90 tab 08/06/21 oxybutynin chloride 5 mg tablet 10 mg PO QHS #180 tab 08/19/21 tamsulosin 0.4 mg PO HS 10/22/21 acetaminophen 1,000 mg PO Q8H PRN PRN #15 cap 10/27/21 ibuprofen 600 mg PO TID #15 tab 10/27/21 Current Visit Medications: Current Medications Generic Name Dose Route Start Last Admin Trade Name Freq PRN Reason Stop Dose Admin Acetaminophen 650 mg 12/10/21 11:42 Acetaminophen 325 Mg Tab PO Q4H PRN PRN Hydrocodone Bitart/Acetaminophen 0 tab 12/10/21 11:42 Hydrocodone 5/Acetaminophen 325 Tab PO Q3H PRN PRN Pain Ringer's Solution 1,000 mls @ 80 mls/hr 12/10/21 06:00 12/10/21 12:16 IV 12/29/21 23:59 80 mls/hr INFUSION EBENEZER Administration Cefazolin Sodium/Dextrose 2 gm in 50 mls @ 100 mls/hr 12/10/21 06:00 Ancef Duplex IVPB 12/10/21 23:59 PREOP EBENEZER IV Miscellaneous Supplies 1 each 12/10/21 06:00 Iv Access IV 12/29/21 23:59 DIRECTED EBENEZER Sodium Chloride 0 ml 12/10/21 06:00 Normal Saline Flush 10 Ml Syr IV 12/29/21 23:59 PRN PRN Sodium Chloride 0 ml 12/10/21 06:00 Normal Saline 10 Ml Vial IJ 12/29/21 23:59 DIRECTED PRN Sterile Water 0 ml 12/10/21 06:00 Water,Injection,Sterile 10 Ml Vial IJ 12/29/21 23:59 DIRECTED PRN PFSH Active Problems Active Problems: Problem Status Onset Code Benign prostatic hyperplasia 01/20/17 N40.0 Essential hypertension 08/14/13 I10 Insomnia G47.00 Tubular adenoma of colon D12.6 Smoker F17.200 Premature beats I49.49 Atrial fibrillation, controlled I48.91 Nocturia R35.1 BPH w urinary obs/LUTS N40.1, N13.8 Dupuytren's contracture of left hand M72.0 Medical History Medical History Acute meniscal tear, medial Spondylolysis of cervical spine Surgical History Surgical History (Updated 12/10/21 @ 12:18 by Monica Ricci RN) Dupuytren's contracture of right hand ring finger Status post release DOS: 10/27/2021 History of total knee arthroplasty bilateral knees Hx of colonoscopy S/P rotator cuff repair right Tobacco Smoking/Tobacco Use Status: Former Tobacco Use Passive smoking exposure: Yes Second hand exposure: No Alcohol Alcohol Intake: current Alcohol intake frequency: a few times a month Alcohol type: beer Substance Use Substance use: Never Substance use type: does not use Vital Signs and Lab Results Vital Signs Most Recent Vital Signs in EMR: Most Recent Vital Signs Temp Pulse Resp BP Pulse Ox 36.4 C L 68 17 128/98 H 99 12/10/21 12:09 12/10/21 12:09 12/10/21 12:09 12/10/21 12:09 12/10/21 12:09 Lab Results Blood Type / Crossmatch: No Data to Display Complete Blood Count: No Data to Display Complete Metabolic Panel: No Data to Display Liver Function Panel: No Data to Display Coagulation Panel: No Data to Display Cardiac Panel: No Data to Display Arterial Blood Gas: No Data to Display Venous Blood Gas: No Data to Display Pancreas Panel: No Data to Display Thyroid Panel: No Data to Display Infectious Disease: Coronavirus (COVID-19)(PCR) Negative (Negative) 12/08/21 09:19 12/08/21 Coronavirus 2019 Source Nasal/Nares 12/08/21 09:19 12/08/21 Blood Cultures: No Data to Display Toxicology Panel: No Data to Display Imaging and Studies Imaging and Studies Study information below may be from another EMR and interpreted by another provider. Please see original notes in EMR for more complete details. EKG Summary: Conclusion Atrial fibrillation...? atrial activity Nonspecific intraventricular conduction delay...QRSd >115mS, not LBBB/RBBB Low voltage, extremity leads...all extremity leads <0.5mV Borderline ST depression, anterolateral leads...ST <-0.07mV, I aVL V2-V6 Echocardiogram Summary: Conclusion Normal left ventricular wall thickness and chamber size. Estimated ejection fraction is 60%. There are no segmental wall motion abnormalities Normal right ventricular size and systolic function Borderline dilated left atrium. Right atrium is normal in size Normal trileaflet aortic valve without stenosis or regurgitation Mildly thickened mitral leaflets with mild regurgitation Normal tricuspid valve with mild regurgitation and normal estimated right ventricular systolic pressure Normal pulmonic valve with trace regurgitation There is a patent foramen ovale with trace left to right flow Anesthesia Assessment and Plan Anesthesia History Personal History: No History of Anesthesia Complications Family History: No Family History of Anesthesia Complications Exercise Tolerance Exercise Tolerance: Metabolic Equivalents>4 Pertinent Negatives Pertinent Negatives: No Symptoms of GERD Cardiac & Pulmonary Exam Cardiac Exam: Normal S1/S2 Heart Sounds Pulmonary Exam: Clear Bilateral Breath Sounds Implantable Cardiac Device Does patient have a Pacemaker or an ICD?: No Airway Exam Known Difficult Airway: No Mallampati Class: 3 Mouth Opening: Narrow (< 3cm) Thyromental Distance: Greater than 3 cm Neck Range of Motion: Full ROM Neck Circumference: Normal Teeth Condition: Normal Dentition ASA Classification ASA Score: ASA 3 Emergency Case?: No NPO Status NPO Status: NPO Clears >2 hours, Solids >8 hours Anesthesia Plan Resuscitation Status: Full Code Anesthesia Technique: General Anesthesia Airway Planned: Natural Airway Monitors Used: Standard Monitors
[2021-12-10 13:24] VITALS: BMI 32.5
[2021-12-10] MEDS: ceFAZolin 2 GM/50 ML BAG IVPB (13:52)
[2021-12-10] MEDS: Sodium Bicarbonate 50 MEQ/50 ML VIAL (14:29)
[2021-12-10 14:52] VITALS: BP 106/72; PULSE 64; RESP 16; TEMP 36.1; O2SAT 95
--- NOTE | 2021-12-10 15:09 | W.ANESPOSTOP ---
Postoperative Evaluation Date, Time and Location Date Performed: 12/10/21 Time Performed: 15:09 Patient Location: Day Surgery Unit Vital Signs Most Recent Imported Vital Signs: Most Recent Vital Signs Temp Pulse Resp BP Pulse Ox 36.1 C L 64 16 106/72 95 12/10/21 14:52 12/10/21 14:52 12/10/21 14:52 12/10/21 14:52 12/10/21 14:52 Pain Score Most Recent Pain Score: Most Recent Pain Score Pain Level 0 12/10/21 14:52 Assessment Mental Status: Awake (Alert & Oriented to Patient Baseline) Airway and Respiratory Function: Patent airway with normal (patient baseline) respiratory exam Cardiovascular Function: Hemodynamically Stable Hydration Status: Adequately Hydrated Nausea & Vomiting: No Nausea or Vomiting Pain: Pt. Denies Any Pain Peripheral Nerve Block: Patient did not receive a nerve block
[2021-12-10 15:18] VITALS: BP 126/89; PULSE 71; RESP 16; TEMP 36.4; O2SAT 96
--- NOTE | 2021-12-10 18:45 | W.PM.OP ---
Date of service: 12/10/21 Time of Service: 14:30 Operative Note Operative Note DATE OF PROCEDURE: 12/10/21 PRE-OP DIAGNOSIS: Left Hand Dupuytren's Contracture POST-OP DIAGNOSIS: same PROCEDURE: Partial Palmar Fasciectomy of Left Hand (Ring and Little Fingers) SURGEON: Ramana Proctor ANESTHESIA TYPE: General:No Airway Refer to Anesthesia Record ESTIMATED BLOOD LOSS: 10 PATHOLOGY: none sent TOURNIQUET TIME: 0 Patient was transported to: same day Patient's condition: stable Indications: Grover is a 66 year old who has Dupuytren's contracture. He successfully underwent a partial palmar fasciectomy on the right hand in October. He also has Dupuytren's contracture of the left hand including the left ring and little fingers. Given the prominence of the nodules and the persistance of the deformity and success on the right side, he desired to proceed with surgical correction. Thus I offered a partial palmar fasciectomy. I reviewed the risks of the procedure to include bleeding, infection, pain, stiffness, damage to nerves and vessels, recurrence, skin defect, need for repeat procedures. Despite this, he elected to proceed. Findings: There were two central cords originating from the palm and terminating upon the flexor tendon sheath just distal to A1 mary beth. Procedure Description: Grover was greeted in the preoperative holding area. His identity was confirmed the correct site identified and marked. Consent was reviewed the patient side. He was taken to the operating room placed in supine position with the left hand outstretched onto a hand table. The hand was prepped with ChloraPrep and draped in a standard fashion. Prophylactic antibiotics in the form of cefazolin administered. Timeout was performed for safe surgery. The surgical site was drawn on the skin a 2 independent limbs and a Andrea type fashion. Skin and soft tissues were anesthetized with 1% lidocaine buffered with sodium bicarbonate with epinephrine. Starting with the ring finger a Andrea type incision was made from the proximal phalanx down to the distal aspect of the palm, just past the level A1 mary beth. The skin was incised sharply. Blunt dissection was carried down to elevate the skin off of the under lying Dupuytren's cord. Cord was quite adherent and there was a large pad which had to be elevated off the skin. There is a central core which originated from the palmar fascia. This cord was dissected proximally. Once it was followed to its origin it was transected. Is an elevated out of the hand from a proximal to distal direction. Adhesions were removed. There is no crossing neurovascular structures. This was followed onto the proximal phalanx was also followed up distally and then transected off of the underlying tendon sheath. Wound was inspected to make sure there is no other bands of pathologic tissue present. Attention was then turned to the little finger. A similar Andrea type incision was then made along the little finger making sure to keep space from the ring finger incision. Once again the cord was dissected proximally and what at its origin, it was transected. It was elevated from proximal distal direction. There were no crossing neurovascular structures. The cord was followed up towards the proximal phalanx. There is a large pad which is very adherent to the skin. In dissecting the pad from the overlying skin a small defect caused. This pattern is quite large. The pad was removed and the remainder of the diseased tissue extending onto the proximal phalanges also removed. It was transected distally. The wound was once again inspected to ensure there is no other disease tissue left behind. Both wounds were thoroughly irrigated. There is no significant bleeding. Wounds were then closed with a 4-0 nylon. I was able to move some skin to fill the defect from the resection of the pad. The wounds were then dressed with Xeroform followed by 4 x 4's. A Kerlix soft dressing was applied over the ring finger and little fingers and extend onto the palm. This was enforced with an Laron wrap. I then the case all counts are correct. He tolerated procedure well and transferred back to the [facility] area in stable condition.
== END 2021-12-10 15:57 | disposition home or self-care (01) ==
LOC: SUR 11:57
PROVIDERS: PCP Family Medicine; Visit Provider Student in an Organized Health Care Education/Training Program
PROC: (CPT 26045; principal; 2021-12-10 12:45)
DX: M72.0 Palmar fascial fibromatosis [Dupuytren] (principal); I10 Essential (primary) hypertension; N40.1 Benign prostatic hyperplasia with lower urinary tract symptoms; F17.210 Nicotine dependence, cigarettes, uncomplicated
CPT/HCPCS: 26037; J0690; J1885; J2001; J2405

== ENCOUNTER 2022-02-11 15:35 | Outpatient (CLI) | payer MEDICAID, SELFPAY | END 2022-02-11 15:36 | disposition home or self-care (01) | LOC: LBO 15:36 | PROVIDERS: PCP Nurse Practitioner Family; Visit Provider Family Medicine ==

== ENCOUNTER 2022-02-12 09:33 | Outpatient (CLI) | payer MEDICAID, SELFPAY ==
[2022-02-12 14:13] LABS: HCT 42.4 % (40.0-50.0); HGB 14.7 g/dL (13.5-17.5); MCH 31.1 pg (27.0-33.0); MCHC 34.7 % (32.0-36.0); MCV 89.6 fL (80-95); MPV 9.5 fL (8.0-11.0); Platelet Count 329 10^3/uL (130-400); RBC 4.73 10^6/uL (4.36-5.78); RDW 11.9 % (11.8-14.1); RDW-SD 39.4 fL
[2022-02-12 14:35] LABS: TSH (W/Ref FT4) 6.49 uIU/mL (0.36-3.74)
[2022-02-12 14:36] LABS: ALT 26 U/L (16-63); AST 11 U/L (15-37); Albumin 3.6 g/dL (3.4-5.0); Alkaline Phosphatase 101 U/L (46-116); Anion Gap 11.7 mmol/L (3-11); BUN 19 mg/dL (7-18); Bilirubin, Total 0.4 mg/dL (0.2-1.0); CO2 27.3 mmol/L (21.0-32.0); CREATININE 0.8 mg/dL (0.70-1.30); Calcium 9.4 mg/dL (8.5-10.1); Calculated LDL 117 mg/dL (<100); Chloride 100 mmol/L (98-107); Cholesterol 180 mg/dL (<200); Glucose 113 mg/dL (74-106); HDL Cholesterol 41 mg/dL (40-60); Potassium 3.4 mmol/L (3.5-5.1); Sodium 139 mmol/L (136-145); Total Protein 7.7 g/dL (6.4-8.2); Triglyceride 113 mg/dL (<150)
[2022-02-12 14:39] LABS: Hemoglobin A1C 5.6 % (<5.7)
[2022-02-12 14:57] LABS: FREE T4 0.85 ng/dL (0.76-1.46)
[2022-02-14 00:21] LABS: PSA, Screening 9.1 ng/mL (<=4.5)
[2022-02-14 10:05] LABS: HIV-1/2 Ag & Ab Screen Negative (Negative)
[2022-02-16 10:05] LABS: Hepatitis C Ab w Rflx HCV PCR Negative (Negative)
== END 2022-02-12 09:34 | disposition home or self-care (01) ==
LOC: LBO 09:36
PROVIDERS: PCP Nurse Practitioner Family; Visit Provider Family Medicine
DX: I10 Essential (primary) hypertension (principal); R73.9 Hyperglycemia, unspecified; I48.91 Unspecified atrial fibrillation; R97.20 Elevated prostate specific antigen [PSA]; Z12.5 Encounter for screening for malignant neoplasm of prostate; Z11.4 Encounter for screening for human immunodeficiency virus [HIV]; Z11.59 Encounter for screening for other viral diseases
CPT/HCPCS: 36415; 80053; 80061; 84153; 85027; 86803; 87389; 83036; 84439; 84443

== ENCOUNTER 2022-05-25 04:12 | Outpatient (CLI) | payer MEDICAID, SELFPAY ==
[2022-05-25 18:01] LABS: PSA, Diagnostic 10.7 ng/mL (<=4.5)
== END 2022-05-25 04:13 | disposition home or self-care (01) ==
LOC: LBO 04:12
PROVIDERS: PCP Nurse Practitioner Family; Visit Provider Nurse Practitioner Gerontology
DX: R97.20 Elevated prostate specific antigen [PSA] (principal)
CPT/HCPCS: 36415; 84153

== ENCOUNTER 2022-06-02 18:28 | Outpatient (REF) | payer MEDICAID, SELFPAY ==
[2022-06-02 20:28] LABS: CREATININE 0.8 mg/dL (0.70-1.30)
== END 2022-06-02 18:29 | disposition home or self-care (01) ==
LOC: LBN 18:28
PROVIDERS: PCP Nurse Practitioner Family; Visit Provider Nurse Practitioner Gerontology
DX: R97.20 Elevated prostate specific antigen [PSA] (principal); R39.89 Other symptoms and signs involving the genitourinary system; Z01.812 Encounter for preprocedural laboratory examination
CPT/HCPCS: 82565

== ENCOUNTER → 2022-07-21 14:54 | Outpatient (BNVA) | payer MEDICARE, MEDICAID, SELFPAY | PROVIDERS: PCP Nurse Practitioner Family; Referring Provider Nurse Practitioner Family; Visit Provider Urology | DX: N40.1 Benign prostatic hyperplasia with lower urinary tract symptoms (principal); R97.20 Elevated prostate specific antigen [PSA] | CPT/HCPCS: 99214 ==

== ENCOUNTER → 2022-08-31 13:39 | Outpatient (BNVA) | payer MEDICARE, MEDICAID, SELFPAY | PROVIDERS: PCP Nurse Practitioner Family; Visit Provider Internal Medicine Cardiovascular Disease | DX: I48.21 Permanent atrial fibrillation (principal); I10 Essential (primary) hypertension | CPT/HCPCS: 99214 ==

== ENCOUNTER 2022-10-20 00:56 | Outpatient (CLI) | payer MEDICARE, MEDICAID, SELFPAY ==
--- NOTE | 2022-10-20 06:45 | DI.US_ITS ---
Exam(s) US PROSTATE BIOPSY EXAM: US PROSTATE BIOPSY CLINICAL HISTORY: ULTRASOUND GUIDED PROSTATE BX, ABNL PSA, R97.20 TECHNIQUE: Ultrasound performed using standard protocol. COMPARISON: None FINDINGS: Ultrasound guidance was provided during transrectal biopsy by the urologist. The radiologist was not present for this procedure. IMPRESSION: As above. DATA REPOSITORY:
--- NOTE | 2022-10-20 09:00 | PROST_PTH ---
PATIENT: Grover De La Torre LOC: [facility] U#:[id number] AGE/SX: 67/M ROOM: RE10/20/[address]: Jair Heart MD : 1955 BED: DIS: 10/20/2022 SPEC #: [id number] RECD: 10/20/22 12:31 STATUS: MINI RE #: [id number] ARTURO: 10/20/22 09:[address]: Jair Heart DEPT: Surgical Specimen RECD BY: Josiane Cassidy ENTERED: 10/20/22 12:37 SP TYPE: PROST OTHR DR: Maximo Ramirez, HUYEN Tissues: 1 - PROSTATE NEEDLE BIOPSY 2 - PROSTATE NEEDLE BIOPSY 3 - PROSTATE NEEDLE BIOPSY 4 - PROSTATE NEEDLE BIOPSY 5 - PROSTATE NEEDLE BIOPSY 6 - PROSTATE NEEDLE BIOPSY 7 - PROSTATE NEEDLE BIOPSY 8 - PROSTATE NEEDLE BIOPSY 9 - PROSTATE NEEDLE BIOPSY 10 - PROSTATE NEEDLE BIOPSY 11 - PROSTATE NEEDLE BIOPSY 12 - PROSTATE NEEDLE BIOPSY Procedures: GROSS AND MICRO LEVEL 4 IMMUNOPEROXIDASE STAIN Comments: [id number]
--- NOTE | 2022-10-20 11:42 | ROE_ITS ---
Date of service: 10/20/22 Time of Service: 11:42 Operative Note Operative Note DATE OF PROCEDURE: 10/20/22 PRE-OP DIAGNOSIS: Elevated PSA POST-OP DIAGNOSIS: same Abnormal prostate MRI PROCEDURE: Transrectal ultrasound-guided biopsy of the prostate SURGEON: Jair Heart ANESTHESIA TYPE: Local By Surgeon Refer to Anesthesia Record ESTIMATED BLOOD LOSS: 10 PATHOLOGY: other (Laterally directed biopsies of the prostate) Patient was transported to: no change Patient's condition: stable Implants: None Indications: This is a 67-year-old gentleman who was identified as having an elevated PSA of 10.7 ng/mL. He underwent a multiparameter prostate MRI which identified some abnormalities on the right apex of the prostate. He presents for ultrasound- guided biopsy. Findings: Prostate volume 65 cc Significant intravesical portion of the prostate Procedure Description: The patient was given a pretty operative antibiotic and mechanical bowel prep. He is brought to the radiology suite on 10/20/2022. He is placed in the left lateral position. Transrectal imaging of the prostate was performed using a variable megahertz transducer. The prostate was imaged in transverse and longitudinal planes. The prostate volume was calculated at 65 cc. The prostate was somewhat asymmetric with the left side being a bit larger than the right. The peripheral zone showed no specific hypoechoic areas. The right calcifications along the junction of the peripheral and transition zones. The transition zone did demonstrate a fairly significant intravesical component. A periprosthetic nerve block was performed using 1% lidocaine without epinephrine. A total of 12 laterally directed biopsies were taken and sent to pathology for permanent section. Each biopsy was labeled individually. The patient tolerated this procedure with no complications.
== END 2022-10-20 01:16 ==
LOC: DI 00:56
PROVIDERS: PCP Nurse Practitioner Family; Visit Provider Urology
DX: C61 Malignant neoplasm of prostate (principal)
CPT/HCPCS: 55700; 76942; 88305; 88361

== ENCOUNTER → 2022-11-17 14:54 | Outpatient (BNVA) | payer MEDICARE, MEDICAID, SELFPAY | PROVIDERS: PCP Nurse Practitioner Family; Referring Provider Nurse Practitioner Family; Visit Provider Urology | DX: C61 Malignant neoplasm of prostate (principal); R97.20 Elevated prostate specific antigen [PSA] | CPT/HCPCS: 99215 ==

== ENCOUNTER 2022-12-02 02:02 | Outpatient (CLI) | payer MEDICARE, MEDICAID, SELFPAY ==
--- NOTE | 2022-12-02 07:45 | DI.NM_ITS ---
Exam(s) NM BONE SCAN WHOLE BODY GRP EXAM: MT BONE SCAN WHOLE BODY GRP CLINICAL HISTORY: baseline study,new diagnosis prostate cancer,c61. TECHNIQUE: Injected Dose: 25 mCi Tc-99m MDP Delayed Images: 2-3 hours. Whole body images and lateral views of the chest, pelvis and head and nec k. COMPARISON: CR XR CHEST 2V PA LATERAL from 07/15/2018 FINDINGS: Symmetric axial uptake. Bilateral renal excretion is identified. No focal area of intense suspicious uptake is seen. Photopenic areas related to bilateral knee prostheses. Increased activity in both fe et, likely reflecting degenerative changes. Mildly increased activity in the mid to lower thoracic s pine, nonspecific but could be related to degenerative changes. IMPRESSION: 1. Mildly increased activity in the mid to lower thoracic spine may be related to degenerative change s but is nonspecific. Thoracic spine plain films could be performed for correlation. DATA REPOSITORY:
== END 2022-12-02 02:22 ==
LOC: DI 02:03
PROVIDERS: PCP Nurse Practitioner Family; Visit Provider Urology
DX: C61 Malignant neoplasm of prostate (principal); Z12.89 Encounter for screening for malignant neoplasm of other sites; Z96.653 Presence of artificial knee joint, bilateral; M47.814 Spondylosis without myelopathy or radiculopathy, thoracic region
CPT/HCPCS: 78306

== ENCOUNTER → 2022-12-04 14:47 | Outpatient (BNVA) | payer MEDICARE, MEDICAID, SELFPAY | PROVIDERS: PCP Nurse Practitioner Family; Referring Provider Nurse Practitioner Family; Visit Provider Urology | DX: C61 Malignant neoplasm of prostate (principal) | CPT/HCPCS: 99214 ==

== ENCOUNTER 2022-12-31 16:22 | Outpatient (REF) | payer MEDICARE, MEDICAID, SELFPAY | END 2022-12-31 16:23 | disposition home or self-care (01) | LOC: LBN 16:22 | PROVIDERS: PCP Nurse Practitioner Family; Visit Provider Urology | DX: R39.89 Other symptoms and signs involving the genitourinary system (principal); C61 Malignant neoplasm of prostate | CPT/HCPCS: 87086 ==

== ENCOUNTER 2023-02-15 12:15 | Outpatient (REF) | payer MEDICARE, MEDICAID, SELFPAY ==
[2023-02-15 13:46] LABS: Bilirubin Negative (Negative); Blood Negative (Negative); Clarity Clear (Clear); Glucose Negative (Negative); Ketones Negative (Negative); Leukocyte Esterase Negative (Negative); Nitrite Negative (Negative); Urobilinogen 0.2 mg/dL (Up to 0.2)
== END 2023-02-15 12:16 | disposition home or self-care (01) ==
LOC: LBN 12:15
PROVIDERS: Visit Provider Urology
DX: R39.89 Other symptoms and signs involving the genitourinary system (principal); C61 Malignant neoplasm of prostate
CPT/HCPCS: 81003; 87086

== ENCOUNTER 2023-03-02 12:11 | Outpatient (CLI) | payer MEDICARE, MEDICAID, SELFPAY ==
[2023-03-02 11:09] LABS: Abs Immature Grans 0.01 10^3/uL (0.0-0.06); Absolute Basophil Count 0.04 10^3/uL (0.0-0.2); Absolute Lymphocyte Count 4.26 10^3/uL (1.2-3.4); Absolute Monocyte Count 0.64 10^3/uL (0.1-0.8); Absolute Neutrophil Count 4.27 10^3/uL (1.2-6.7); Basophils % 0.4; Eosinophils % 2.1; HCT 43.9 % (40.0-50.0); HGB 15.3 g/dL (13.5-17.5); Immature Grans % 0.1; Lymphocytes % 45.2; MCH 30.4 pg (27.0-33.0); MCHC 34.9 % (32.0-36.0); MCV 87 fL (80-95); MPV 9.7 fL (8.0-11.0); Monocytes % 6.8; Neutrophils % 45.4; Platelet Count 315 10^3/uL (130-400); RBC 5.03 10^6/uL (4.36-5.78); RDW 12.1 % (11.8-14.1); RDW-SD 38.5 fL; WBC 9.42 10^3/uL (4.4-10.8)
[2023-03-02 11:33] LABS: ALT 18 U/L (16-63); AST 12 U/L (15-37); Albumin 3.5 g/dL (3.4-5.0); Alkaline Phosphatase 103 U/L (46-116); BUN 21 mg/dL (7-18); Bilirubin, Total 0.3 mg/dL (0.2-1.0); CREATININE 0.9 mg/dL (0.70-1.30); Calcium 9.5 mg/dL (8.5-10.1); Chloride 103 mmol/L (98-107); Estimated GFR 94.78 (mL/min/1.73m2); Glucose 99 mg/dL (74-106); Potassium 3.3 mmol/L (3.5-5.1); Sodium 139 mmol/L (136-145); Total Protein 7.7 g/dL (6.4-8.2)
[2023-03-03 19:48] LABS: PSA, Ultrasensitive 15.5 ng/mL (<= 4.5)
[2023-03-06 05:53] LABS: Testosterone, Total 442 ng/dL (240-950)
== END 2023-03-02 12:12 | disposition home or self-care (01) ==
PROVIDERS: Visit Provider Internal Medicine
DX: C61 Malignant neoplasm of prostate (principal)
CPT/HCPCS: 36415; 80053; 84153; 84403; 85025

== ENCOUNTER 2023-03-10 11:34 | Emergency (ER) | payer MEDICARE, MEDICAID, SELFPAY ==
[2023-03-10] VITALS (23 sets, daily range): BP systolic 140–186; BP diastolic 83–122; PULSE 68–91; RESP 16; TEMP 37.2; O2SAT 97–100
--- NOTE | 2023-03-10 11:54 | ED.GENADUL_ITS ---
Discharge Plan Disposition Patient Disposition: Home Discharge Details Clinical Impression: Abdominal pain, Diverticulitis Primary Care Provider: Lobito Murphy ED Provider: Jose J Bearden Home Meds and New Rx's Prescriptions: New ciprofloxacin HCl 500 mg tablet 500 mg PO BID Qty: 14 0RF metronidazole 500 mg tablet 500 mg PO Q8H Qty: 21 0RF Continued trazodone 100 mg tablet 100 mg PO QHS PRN (Reason: sleep) Qty: 25 2RF Patient Comments: takes rarely Multiple Vitamin-Minerals 1 EACH tablet 1 ea PO DAILY chlorthalidone 25 mg tablet 25 mg PO DAILY Qty: 90 3RF metoprolol succinate 50 mg tablet extended release 24 hr 50 mg PO DAILY Qty: 90 3RF amlodipine 5 mg tablet 5 mg PO DAILY Qty: 90 3RF acetaminophen 500 mg capsule 1,000 mg PO Q8H PRN PRNQty: 15 0RF Discharge Instructions Instructions: Diverticulitis (ED) Additional Instructions: your cat scan did not show any concerning findings other than uncomplicated diverticulitis follow up with your primary care provider and oncologist if you feel more ill, have severe worsening pain or persistent vomiting return to the emergency department Medical Decision Making 67 yo male with hx of prostate cancer who had a TURP on 02/25 after they were unable to perform a radical prostectomy at [facility], and had first injection of hormone therapy for his cancer into the abdomen today, and shortly after started to have diffuse abdominal pain. Denies vomiting, fevers, chills. He states pain is improving but is still present. His abdomen is nondidstended, no guarding or rebound but is diffusely tender on deep palpation. Unclear etiology for his pain, will proceed with cbc, cmp, lipase and ct abd/pelvis to further evaluate pt still having some discomfrot, still no crepitus or guarding, will give a dose of morphine and for possible local reaction trial benadryl. ct shows mild edema of the subcutaneous tissue, simple diverticulitis, otherwise benign ct. HE is feeling better, stable vitals and minimal lower left abdominal tenderness without guarding. He feels well enough for d/c and is stable for d/c, will start in cipro/flagyl. He will f/u with his treatment oncology team and return precautions given Differential Diagnosis Differential Diagnosis: pancreatitis, sbo Medical Records Medical records reviewed: Yes I reviewed the patient's medical records. Imaging Data Radiologic Study: Attestation: I personally reviewed and interpreted this imaging study as follows: Imaging: CT Scan Radiologist's impression: Impression: Findings consistent mild diverticulitis.? No perforation or abscess. Mild edema in the anterior abdominal wall.? No drainable collection. Lab Data Lab results reviewed: Yes I reviewed the patient's lab results. HPI General Mode of arrival: ambulatory . Date/Time Provider Initiated Documentation: 03/10/23 11:38 . Limitations to Documentation: no limitations . Information obtained by: patient . History of Present Illness 67 year old M presents to the emergency department with the chief complaint of abdominal pain, described as moderate, Quality is described as sharp, and is localized to the abdomen. Patient reports no radiation. Patient started experiencing this hour(s) (2) and it has been other (improving). No relieving factors improve symptom(s), No exacerbating factors reported . Patient notes no other symptoms.. Patient did receive the following treatments prior to arrival, none Related Data Home Medications Medication Instructions Recorded Confirmed multivitamin with minerals 1 ea PO DAILY 05/26/17 03/10/23 (Multiple Vitamin-Minerals tablet) trazodone 100 mg tablet 100 mg PO QHS PRN sleep #25 tabs 06/09/21 03/10/23 acetaminophen 500 mg capsule 1,000 mg PO Q8H PRN PRN #15 caps 10/27/21 03/10/23 chlorthalidone 25 mg tablet 25 mg PO DAILY #90 tabs 04/30/22 03/10/23 metoprolol succinate 50 mg 50 mg PO DAILY #90 tabs 05/05/22 03/10/23 tablet,extended release 24 hr amlodipine 5 mg tablet 5 mg PO DAILY #90 tabs 07/27/22 03/10/23 ciprofloxacin HCl 500 mg tablet 500 mg PO BID #14 tabs 03/10/23 metronidazole 500 mg tablet 500 mg PO Q8H #21 tabs 03/10/23 Previous Rx's Medication Instructions Recorded trazodone 100 mg tablet 100 mg PO QHS PRN sleep #25 tabs 06/09/21 acetaminophen 500 mg capsule 1,000 mg PO Q8H PRN PRN #15 caps 10/27/21 chlorthalidone 25 mg tablet 25 mg PO DAILY #90 tabs 04/30/22 metoprolol succinate 50 mg 50 mg PO DAILY #90 tabs 05/05/22 tablet,extended release 24 hr amlodipine 5 mg tablet 5 mg PO DAILY #90 tabs 07/27/22 ciprofloxacin HCl 500 mg tablet 500 mg PO BID #14 tabs 03/10/23 metronidazole 500 mg tablet 500 mg PO Q8H #21 tabs 03/10/23 Allergies Allergy/AdvReac Type Severity Reaction Status Date / Time lisinopril AdvReac Mild COUGH Verified 03/10/23 11:50 [email or web address] [From Myrbetriq] AdvReac ? retention Verified 03/10/23 11:50 General Stated Complaint: Abd Prob ANDRES: 3 Review of Systems All systems reviewed & are unremarkable except as noted in HPI and below Constitutional Constitutional: Denies chills, Denies fever(s) and Denies weakness Cardiovascular Cardiovascular: Denies chest pain and Denies dyspnea Respiratory Respiratory: Denies cough and Denies dyspnea Gastrointestinal Gastrointestinal: Denies nausea and Denies vomiting Musculoskeletal Musculoskeletal: Denies joint swelling Neurologic Neurologic: Denies weakness PFSH All Active Problems (Updated 03/10/23 @ 14:01 by Jose J Bearden MD) Abdominal pain (Acute) Diverticulitis (Chronic) Prostate cancer (Chronic) Subclinical hypothyroidism (Acute) 01/2022-mildly elevated TSH, low normal free T4 Hyperglycemia (Acute) 01/2022, FBS-113 Abnormal PSA (Acute) 06/2021-PSA-7.7 01/2022-PSA9.1 Essential hypertension (Acute 08/14/13) Insomnia (Acute) Tubular adenoma of colon (Acute) [facility] Atrial fibrillation, controlled (Acute) 01/2022-asymptomatic, followed by Card[facility], Jijke-Cpwi-3 BPH w urinary obs/LUTS (Acute) Dupuytren's contracture of left hand (Acute) ring finger and small finger Medical History (Updated 03/10/23 @ 14:01 by Jose J Bearden MD) Acute meniscal tear, medial Spondylolysis of cervical spine Surgical History (System 02/24/22 @ 07:39 by Darshana Miner) Dupuytren's contracture of right hand ring finger Status post release DOS: 10/27/2021 History of total knee arthroplasty bilateral knees Hx of colonoscopy S/P rotator cuff repair right Family History Mother , 80's Personal history of malignant neoplasm ESOPHAGEAL Heart disease Cancer Grandfather Personal history of malignant neoplasm LUNG Grandfather Stroke Grandmother Heart disease Social History (System 02/24/22 @ 07:39 by Darshana Miner) Smoking/Tobacco Use Status: Former Tobacco Use tobacco type: cigarettes Quit Date: 11/01/04 Tobacco: How many years used: 10 Second Hand Exposure: Yes Smoking risk assessment performed?: Yes Alcohol Intake: current Alcohol Intake frequency: a few times a month Alcohol type: beer Drug use: Occasionally Substance use type: marijuana Caregiver/Support person: No Household members: significant other Communication Needs: None Do you need help understanding health information?: Rarely Pets and animals: Yes Pets and animals: cat(s) Sexually active: Yes Do you think of yourself as: straight/heterosexual Current gender identity: male What is your relationship status?: living with partner How often do you talk on the phone with friends or family?: three or more times per week How often do you get together with friends or relatives?: decline to answer How often do you attend yarsani or yarsanism services?: decline to answer Do you belong to any clubs or organized social groups?: decline to answer Panel score (0-1 are the most socially isolated patients): 2 What type of physical activity do you participate in: walking Duration: 15-30 minutes/day Frequency: 5-6 times per week Bibiana/Restoration: No preference Special bibiana needs: No Seatbelt use: always Helmet use: Yes Helmet use: always Drive intox or ride w/intox driver's license examiner: No Do you feel safe at home: Yes Do you feel safe in your relationship?: Yes Exam Const General: no acute distress Orientation: alert HENMT Head: normal to inspection Ears: external ears normal General nose exam: external nose normal Mouth: moist mucous membranes Eyes General: appearance normal, both eyes and all related structures Neck Neck: normal visual inspection Resp Effort & Inspection: normal respiratory effort and able to speak in complete sentences Cardio Rate: regular rate GI Palpation: soft, not firm and no guarding Skin General skin exam: no rashes or lesions noted Neuro General: patient alert and patient oriented x3 Extrem General: normal to inspection Psych Mental Status: mental status grossly normal Course Vital Signs Vital signs: Vital Signs Temperature 37.2 C 03/10/23 11:47 Pulse 91 H 03/10/23 11:47 Respiratory Rate 16 03/10/23 11:47 Blood Pressure 167/93 H 03/10/23 11:47 Pulse Oximetry 99 03/10/23 11:47 Temperature 37.2 C 03/10/23 11:47 Temperature Source Temporal Artery Scan 03/10/23 11:47 Pulse 91 H 03/10/23 11:47 Respiratory Rate 16 03/10/23 11:47 Respiratory Effort Normal 03/10/23 11:49 Blood Pressure 167/93 H 03/10/23 11:47 Blood Pressure Position Sitting 03/10/23 11:47 Pulse Oximetry 99 03/10/23 11:47 Oxygen Delivery Method Room Air 03/10/23 11:47 Oxygen Flow Rate 0 03/10/23 11:47 Pain Level 8 03/10/23 11:47
--- NOTE | 2023-03-10 12:00 | DI.CT_ITS ---
Exam(s) CT ABDOMEN PELVIS W EXAM: CT ABDOMEN PELVIS W CLINICAL HISTORY: abdominal pain s/p hormone injection into abdomen. TECHNIQUE: Imaging Protocol: Axial computed tomography images with coronal and sagittal reformatted images were created and reviewed CONTRAST MATERIAL: Intravenous: Omnipaque 350 Contrast volume:100 ml Oral: no COMPARISON: NM NM BONE SCAN WHOLE BODY GRP from 12/02/2022 FINDINGS: ABDOMEN: Lung Bases: Normal where visualized. Liver: Normal density. No measurable mass. Gallbladder and biliary tract: No radiodense calculus or dilation. Pancreas: Normal density, no abnormal calcifications or inflammatory process. Spleen: Normal. Kidneys: Normal size, contour and axis. No radiodense stones or obstructive uropathy. No suspicious m asses seen. Adrenal glands: No masses seen. Abdominal Aorta: Abdominal portion non-dilated. Atherosclerotic changes. Soft tissues: Small fatty containing left inguinal hernia. A small area edema is seen in the subcuta neous fat in the left mid abdomen. A minimal amount of stranding is seen near the umbilicus. No michelle inable collection. PELVIS: Bladder: Not well distended. Wall thickening. No calculi.No focal mass. Bowel: No obstruction. Diverticulitis noted throughout the colon. Wall thickening and mild strandin g around the sigmoid colon could indicate mild diverticulitis. Appendix normal. Peritoneal cavity: No free air, abscess or free fluid. Bones: Within normal limits for age. Reproductive organs: A defect in superior portion of prostate which could be postsurgical. Lymph nodes: Unremarkable. Impression: Findings consistent mild diverticulitis. No perforation or abscess. Mild edema in the anterior abdominal wall. No drainable collection. RADIATION DOSE DELIVERED: 985.35mGy.cm Total DLP DATA REPOSITORY: All CT scans at this facility are submitted to the National Radiology Data Registry (NRDR) Dose Index Registry (DIR) with the [employer] [place] [employer] [employer] (A[employer]). RADIATION OPTIMIZATION: All CT scans at this facility use at least one of these dose optimization te chniques: automated exposure control; mA and/or kV adjustment per patient size (includes targeted exa ms where dose is matched to clinical indication); or iterative reconstruction.
[2023-03-10] MEDS: Normal Saline 1,000 ML 1000 ML IV (12:11)
[2023-03-10] MEDS: Ketorolac 15 MG/ML VIAL IVP (12:12)
[2023-03-10 12:14] LABS: Abs Immature Grans 0.04 10^3/uL (0.0-0.06); Absolute Basophil Count 0.04 10^3/uL (0.0-0.2); Absolute Eosinophil Count 0.07 10^3/uL (0.0-0.7); Absolute Lymphocyte Count 3.39 10^3/uL (1.2-3.4); Absolute Monocyte Count 0.54 10^3/uL (0.1-0.8); Absolute Neutrophil Count 6.34 10^3/uL (1.2-6.7); Basophils % 0.4; Eosinophils % 0.7; HCT 45.2 % (40.0-50.0); HGB 15.7 g/dL (13.5-17.5); Immature Grans % 0.4; Lymphocytes % 32.5; MCH 30.1 pg (27.0-33.0); MCHC 34.7 % (32.0-36.0); MCV 87 fL (80-95); MPV 9.5 fL (8.0-11.0); Monocytes % 5.2; Neutrophils % 60.8; Platelet Count 368 10^3/uL (130-400); RBC 5.21 10^6/uL (4.36-5.78); RDW 12.1 % (11.8-14.1); RDW-SD 38.7 fL; WBC 10.42 10^3/uL (4.4-10.8)
[2023-03-10 12:33] LABS: ALT 23 U/L (16-63); AST 15 U/L (15-37); Alkaline Phosphatase 119 U/L (46-116); Anion Gap 9.9 mmol/L (3-11); BUN 14 mg/dL (7-18); Bilirubin, Total 0.6 mg/dL (0.2-1.0); CO2 26.1 mmol/L (21.0-32.0); CREATININE 0.8 mg/dL (0.70-1.30); Calcium 9.6 mg/dL (8.5-10.1); Chloride 99 mmol/L (98-107); Estimated GFR 98.21 (mL/min/1.73m2); Glucose 100 mg/dL (74-106); Lipase 26 U/L (16-77); Magnesium 1.9 mg/dL (1.8-2.4); Potassium 3.2 mmol/L (3.5-5.1); Sodium 135 mmol/L (136-145); Total Protein 8.6 g/dL (6.4-8.2)
[2023-03-10] MEDS: Omnipaque 350 MG/ML 500 ML BTL-Imaging package IJ (12:41)
[2023-03-10] MEDS: Normal Saline - Diluent 50 ML VIAL IJ (12:42)
--- NOTE | 2023-03-10 12:56 | NUR.NOTE ---
Nursing Note: PT reports pain increase at this time. nature and location the same as before.
[2023-03-10 12:59] LABS: Bilirubin Negative (Negative); Blood Moderate (Negative); Clarity Clear (Clear); Glucose Negative (Negative); Ketones 15 mg/dL (Negative); Leukocyte Esterase Trace (Negative); Nitrite Negative (Negative); Urobilinogen 0.2 mg/dL (Up to 0.2)
[2023-03-10] MEDS: MORPHine 4 MG/ML SYR IVP (13:01)
[2023-03-10 13:18] LABS: Bacteria Rare HPF (Negative); C & S Indicated? Yes; Casts Negative LPF (Negative); Crystals Negative HPF (Negative); Epithelial Cells Rare HPF (Negative); Mucus Negative (Negative); RBC 20-50 HPF (0-2)
[2023-03-10] MEDS: diphenhydrAMINE 50 MG/ML VIAL 25 MG IVP (13:19)
[2023-03-10] MEDS: Ciprofloxacin 500 MG TAB PO (14:05)
[2023-03-10] MEDS: metroNIDAZOLE 500 MG TAB PO (14:05)
== END 2023-03-10 14:30 | disposition home or self-care (01) ==
PROVIDERS: Emergency Provider Emergency Medicine; PCP Family Medicine
DX: C61 Malignant neoplasm of prostate (principal); R10.9 Unspecified abdominal pain; K57.92 Diverticulitis of intestine, part unspecified, without perforation or abscess without bleeding
CPT/HCPCS: 80053; 83690; 96361; 96374; 96375; 99285; 74177; 81003; 81015; 83735; 85025; 87086; 99284; J1200; J1885; J2270

== ENCOUNTER 2023-03-31 15:07 | Outpatient (REF) | payer MEDICARE, MEDICAID, SELFPAY ==
[2023-03-31 21:17] LABS: Anion Gap 9.5 mmol/L (3-11); BUN 19 mg/dL (7-18); CO2 26.5 mmol/L (21.0-32.0); CREATININE 0.8 mg/dL (0.70-1.30); Calcium 9.5 mg/dL (8.5-10.1); Chloride 100 mmol/L (98-107); Estimated GFR 98.21 (mL/min/1.73m2); Glucose 100 mg/dL (74-106); Potassium 3.7 mmol/L (3.5-5.1); Sodium 136 mmol/L (136-145)
== END 2023-03-31 15:08 | disposition home or self-care (01) ==
LOC: NCHCN 15:07
PROVIDERS: PCP Family Medicine; Visit Provider Family Medicine
DX: I10 Essential (primary) hypertension (principal)
CPT/HCPCS: 80048

== ENCOUNTER 2023-04-06 11:16 | Outpatient (CLI) | payer MEDICARE, MEDICAID, SELFPAY ==
[2023-04-06 10:08] LABS: Abs Immature Grans 0.01 10^3/uL (0.0-0.06); Absolute Basophil Count 0.04 10^3/uL (0.0-0.2); Absolute Eosinophil Count 0.14 10^3/uL (0.0-0.7); Absolute Lymphocyte Count 4.25 10^3/uL (1.2-3.4); Absolute Monocyte Count 0.66 10^3/uL (0.1-0.8); Basophils % 0.5; Eosinophils % 1.7; Immature Grans % 0.1; Lymphocytes % 50.6; MCH 30.1 pg (27.0-33.0); MCHC 34.9 % (32.0-36.0); MCV 86 fL (80-95); MPV 9.4 fL (8.0-11.0); Monocytes % 7.9; Neutrophils % 39.2; Platelet Count 312 10^3/uL (130-400); RBC 4.98 10^6/uL (4.36-5.78); RDW 11.9 % (11.8-14.1); RDW-SD 37.5 fL
[2023-04-06 10:36] LABS: ALT 29 U/L (16-63); AST 17 U/L (15-37); Albumin 3.4 g/dL (3.4-5.0); Alkaline Phosphatase 94 U/L (46-116); Anion Gap 8.1 mmol/L (3-11); BUN 18 mg/dL (7-18); Bilirubin, Total 0.6 mg/dL (0.2-1.0); CO2 27.9 mmol/L (21.0-32.0); CREATININE 0.8 mg/dL (0.70-1.30); Calcium 9.3 mg/dL (8.5-10.1); Chloride 100 mmol/L (98-107); Estimated GFR 98.21 (mL/min/1.73m2); Glucose 106 mg/dL (74-106); Potassium 3.4 mmol/L (3.5-5.1); Sodium 136 mmol/L (136-145); Total Protein 7.6 g/dL (6.4-8.2)
[2023-04-07 17:33] LABS: PSA, Ultrasensitive 1.6 ng/mL (<= 4.5)
== END 2023-04-06 11:17 | disposition home or self-care (01) ==
LOC: LBO 11:17
PROVIDERS: PCP Family Medicine; Visit Provider Internal Medicine
DX: C61 Malignant neoplasm of prostate (principal)
CPT/HCPCS: 36415; 80053; 84153; 84403; 85025

== ENCOUNTER 2023-05-26 03:39 | Outpatient (CLI) | payer MEDICARE, MEDICAID, SELFPAY ==
[2023-05-26 09:58] LABS: Abs Immature Grans 0.01 10^3/uL (0.0-0.06); Absolute Basophil Count 0.05 10^3/uL (0.0-0.2); Absolute Lymphocyte Count 5.27 10^3/uL (1.2-3.4); Absolute Monocyte Count 0.68 10^3/uL (0.1-0.8); Absolute Neutrophil Count 2.97 10^3/uL (1.2-6.7); Basophils % 0.5; Eosinophils % 2.2; HCT 43.4 % (40.0-50.0); Immature Grans % 0.1; Lymphocytes % 57.4; MCH 29.8 pg (27.0-33.0); MCHC 34.6 % (32.0-36.0); MCV 86 fL (80-95); MPV 9.6 fL (8.0-11.0); Monocytes % 7.4; Neutrophils % 32.4; Platelet Count 278 10^3/uL (130-400); RBC 5.03 10^6/uL (4.36-5.78); RDW 12.3 % (11.8-14.1); RDW-SD 38.6 fL; WBC 9.18 10^3/uL (4.4-10.8)
[2023-05-26 10:22] LABS: ALT 24 U/L (16-63); AST 14 U/L (15-37); Albumin 3.6 g/dL (3.4-5.0); Alkaline Phosphatase 95 U/L (46-116); Anion Gap 10.8 mmol/L (3-11); BUN 27 mg/dL (7-18); Bilirubin, Total 0.4 mg/dL (0.2-1.0); CO2 28.2 mmol/L (21.0-32.0); CREATININE 0.8 mg/dL (0.70-1.30); Calcium 9.8 mg/dL (8.5-10.1); Chloride 101 mmol/L (98-107); Estimated GFR 98.21 (mL/min/1.73m2); Glucose 113 mg/dL (74-106); Potassium 3.2 mmol/L (3.5-5.1); Sodium 140 mmol/L (136-145); Total Protein 7.6 g/dL (6.4-8.2)
[2023-05-26 10:46] LABS: Diff Comment Diff Reviewed; RBC Morphology Normal
[2023-05-27 18:05] LABS: PSA, Ultrasensitive 0.69 ng/mL (<= 4.5)
[2023-05-29 13:41] LABS: Testosterone, Total 17 ng/dL (240-950)
== END 2023-05-26 03:40 | disposition home or self-care (01) ==
LOC: LBO 03:39
PROVIDERS: PCP Family Medicine; Visit Provider Internal Medicine
DX: C61 Malignant neoplasm of prostate (principal)
CPT/HCPCS: 36415; 80053; 84153; 84403; 85025

== ENCOUNTER 2023-06-30 16:48 | Outpatient (REF) | payer MEDICARE, MEDICAID, SELFPAY ==
[2023-06-30 18:12] LABS: ALT 25 U/L (16-63); AST 17 U/L (15-37); Albumin 3.5 g/dL (3.4-5.0); Alkaline Phosphatase 106 U/L (46-116); Anion Gap 12.4 mmol/L (3-11); BUN 22 mg/dL (7-18); Bilirubin, Total 0.6 mg/dL (0.2-1.0); CO2 24.6 mmol/L (21.0-32.0); CREATININE 0.8 mg/dL (0.70-1.30); Calcium 9.6 mg/dL (8.5-10.1); Calculated LDL 140 mg/dL (<100); Chloride 101 mmol/L (98-107); Cholesterol 206 mg/dL (<200); Estimated GFR 97.61 (mL/min/1.73m2); Glucose 95 mg/dL (74-106); HDL Cholesterol 50 mg/dL (40-60); Potassium 3.5 mmol/L (3.5-5.1); Sodium 138 mmol/L (136-145); Triglyceride 82 mg/dL (<150)
== END 2023-06-30 16:49 | disposition home or self-care (01) ==
LOC: NCHCN 16:48
PROVIDERS: PCP Family Medicine; Visit Provider Family Medicine
DX: I10 Essential (primary) hypertension (principal); I48.91 Unspecified atrial fibrillation; E66.9 Obesity, unspecified; R79.89 Other specified abnormal findings of blood chemistry
CPT/HCPCS: 80053; 80061

== ENCOUNTER 2023-07-06 02:34 | Outpatient (CLI) | payer MEDICARE, MEDICAID, SELFPAY ==
[2023-07-06 09:11] LABS: Abs Immature Grans 0.02 10^3/uL (0.0-0.06); Absolute Basophil Count 0.05 10^3/uL (0.0-0.2); Absolute Eosinophil Count 0.11 10^3/uL (0.0-0.7); Absolute Lymphocyte Count 5.23 10^3/uL (1.2-3.4); Absolute Monocyte Count 0.62 10^3/uL (0.1-0.8); Absolute Neutrophil Count 3.06 10^3/uL (1.2-6.7); Basophils % 0.6; Eosinophils % 1.2; HCT 40.5 % (40.0-50.0); Immature Grans % 0.2; Lymphocytes % 57.5; MCH 30.3 pg (27.0-33.0); MCHC 34.6 % (32.0-36.0); MCV 88 fL (80-95); MPV 9.3 fL (8.0-11.0); Monocytes % 6.8; Neutrophils % 33.7; Platelet Count 330 10^3/uL (130-400); RBC 4.62 10^6/uL (4.36-5.78); RDW 12.4 % (11.8-14.1); RDW-SD 39.6 fL; WBC 9.09 10^3/uL (4.4-10.8)
[2023-07-06 09:35] LABS: Diff Comment Diff Reviewed; RBC Morphology Normal
[2023-07-06 09:36] LABS: ALT 24 U/L (16-63); AST 17 U/L (15-37); Albumin 3.5 g/dL (3.4-5.0); Alkaline Phosphatase 101 U/L (46-116); Anion Gap 6.8 mmol/L (3-11); BUN 24 mg/dL (7-18); Bilirubin, Total 0.5 mg/dL (0.2-1.0); CO2 29.2 mmol/L (21.0-32.0); CREATININE 0.8 mg/dL (0.70-1.30); Calcium 9.8 mg/dL (8.5-10.1); Chloride 100 mmol/L (98-107); Estimated GFR 97.61 (mL/min/1.73m2); Glucose 96 mg/dL (74-106); Potassium 3.4 mmol/L (3.5-5.1); Sodium 136 mmol/L (136-145); Total Protein 7.5 g/dL (6.4-8.2)
[2023-07-07 18:39] LABS: PSA, Ultrasensitive 0.65 ng/mL (<= 4.5)
[2023-07-09 17:15] LABS: Testosterone, Total 21 ng/dL (240-950)
== END 2023-07-06 02:35 | disposition home or self-care (01) ==
LOC: LBO 02:34
PROVIDERS: PCP Family Medicine; Visit Provider Internal Medicine
DX: C61 Malignant neoplasm of prostate (principal)
CPT/HCPCS: 36415; 80053; 84153; 84403; 85025

== ENCOUNTER → 2023-07-13 01:02 | Outpatient (CLI) | payer MEDICARE, MEDICAID, SELFPAY ==
--- NOTE | 2023-07-13 | DI.DEXA_ITS ---
Exam(s) XR DEXA BONE DENSITY W/WO ANNITA EXAM: XR DEXA BONE DENSITY W/WO ANNITA CLINICAL HISTORY: PROSTATE CANCER C61 C77.5 ANDROGEN DEPRIVATION THERAPY Z79.818 SCREENING TECHNIQUE: Holo[employer] Horizon C densitometer analysis of left hip, lumbar spine and left forearm. Lat eral survey image of the thoracic and lumbar spine. COMPARISON: No exams were available for comparison FINDINGS: Lateral view of the thoracic and lumbar spine shows no evidence of compression fractures. Bone mineral density measurements of the lumbar spine correspond to a total T-score of 1.9, in the n ormal range. Bone mineral density measurements of the left hip correspond to a total T-score of -0.5. The femora l neck T-score is -0.1, in the low normal range . Theleft forearm bone mineral density measurements correspond to a T-score of the distal 3rd of 0.8 n ormal range.. IMPRESSION: Normal bone mineral density.
== END ==
PROVIDERS: PCP Family Medicine; Visit Provider Internal Medicine
DX: Z79.818 Long term (current) use of other agents affecting estrogen receptors and estrogen levels (principal); Z13.820 Encounter for screening for osteoporosis; C61 Malignant neoplasm of prostate; C77.5 Secondary and unspecified malignant neoplasm of intrapelvic lymph nodes
CPT/HCPCS: 77080

== ENCOUNTER 2023-09-10 07:50 | Outpatient (CLI) | payer MEDICARE, MEDICAID, SELFPAY ==
--- NOTE | 2023-09-10 07:45 | RT.EKG_ITS ---
APPROVED REPORT Exam: Resting ECG Reason for Exam: afib Patient Location: O HR:95 bpm ECG Measurements Heart Rate 95 AXIS ID [id number] P [id number] QRSd 105 QRS 0 QT 366 T 17 QTc 460 Conclusion Atrial fibrillation...V-rate 75-121, irreg A-activity Baseline wander in lead(s) V1,V3
== END 2023-09-10 07:51 | disposition home or self-care (01) ==
LOC: DI.CARD 07:51
PROVIDERS: PCP Family Medicine; Visit Provider Internal Medicine Cardiovascular Disease
DX: I48.91 Unspecified atrial fibrillation (principal)
CPT/HCPCS: 93010

== ENCOUNTER → 2023-09-10 09:38 | Outpatient (BNVA) | payer MEDICARE, MEDICAID, SELFPAY | PROVIDERS: PCP Family Medicine; Visit Provider Internal Medicine Cardiovascular Disease | DX: I48.21 Permanent atrial fibrillation (principal); C61 Malignant neoplasm of prostate | CPT/HCPCS: 93005; 99213 ==

== ENCOUNTER 2023-09-28 03:40 | Outpatient (CLI) | payer MEDICARE, MEDICAID, SELFPAY ==
[2023-09-28 08:24] LABS: Abs Immature Grans 0.01 10^3/uL (0.0-0.06); Absolute Basophil Count 0.03 10^3/uL (0.0-0.2); Absolute Eosinophil Count 0.21 10^3/uL (0.0-0.7); Absolute Lymphocyte Count 1.26 10^3/uL (1.2-3.4); Absolute Monocyte Count 0.53 10^3/uL (0.1-0.8); Absolute Neutrophil Count 2.67 10^3/uL (1.2-6.7); Basophils % 0.6; Eosinophils % 4.5; HCT 38.8 % (40.0-50.0); HGB 13.4 g/dL (13.5-17.5); Immature Grans % 0.2; Lymphocytes % 26.8; MCH 31.2 pg (27.0-33.0); MCHC 34.5 % (32.0-36.0); MCV 90 fL (80-95); MPV 9.1 fL (8.0-11.0); Monocytes % 11.3; Neutrophils % 56.6; Platelet Count 290 10^3/uL (130-400); RBC 4.29 10^6/uL (4.36-5.78); RDW 13.2 % (11.8-14.1); RDW-SD 44.3 fL; WBC 4.71 10^3/uL (4.4-10.8)
[2023-09-28 08:38] LABS: ALT 29 U/L (16-63); AST 17 U/L (15-37); Albumin 3.6 g/dL (3.4-5.0); Alkaline Phosphatase 94 U/L (46-116); BUN 18 mg/dL (7-18); Bilirubin, Total 0.5 mg/dL (0.2-1.0); CREATININE 0.8 mg/dL (0.70-1.30); Calcium 9.9 mg/dL (8.5-10.1); Chloride 101 mmol/L (98-107); Estimated GFR 97.61 (mL/min/1.73m2); Glucose 109 mg/dL (74-106); Potassium 3.6 mmol/L (3.5-5.1); Sodium 139 mmol/L (136-145); Total Protein 7.7 g/dL (6.4-8.2)
[2023-10-02 12:19] LABS: Testosterone, Total 8.8 ng/dL (240-950)
== END 2023-09-28 03:41 | disposition home or self-care (01) ==
LOC: LBO 03:40
PROVIDERS: PCP Family Medicine; Visit Provider Internal Medicine
DX: C61 Malignant neoplasm of prostate (principal)
CPT/HCPCS: 36415; 80053; 84153; 84403; 85025

== ENCOUNTER → 2023-09-28 10:33 | Outpatient (CLI) | payer MEDICARE, MEDICAID, SELFPAY ==
--- NOTE | 2023-09-28 | DI.US_ITS ---
Exam(s) US LOWER EXTREMITY VENOUS LT EXAM: US LOWER EXTREMITY VENOUS LT CLINICAL HISTORY: LT LEG SWELLING, M79.89,PROSTATE CA METASTATIC TO LYMPH NODE,?DVT,S/P RX TECHNIQUE: Grayscale, color, and doppler imaging of the deep venous system of the lower extremity w as performed. COMPARISON: US US PROSTATE BIOPSY from 10/20/2022 FINDINGS: There is no evidence of deep venous thrombosis in left lower extremity. However, there is intralumin al thrombus noted in a branch of the greater saphenous vein in the medial aspect of the left thigh, n onocclusive and measuring over a luminal distance of 1.6 cm. This is not close to the saphenofemoral junction. Incidentally noted are some few slightly prominent lymph nodes in the ipsilateral left groin. IMPRESSION: Study is positive for the presence of nonocclusive intraluminal thrombus within a branch of the great er saphenous vein in the left thigh. The superior aspect of this 1.6 cm length clot is not close to the saphenofemoral junction. There is no evidence of the venous thrombosis in the ipsilateral lower extremity. DATA REPOSITORY:
== END ==
PROVIDERS: PCP Family Medicine; Visit Provider Internal Medicine
DX: M79.89 Other specified soft tissue disorders (principal)
CPT/HCPCS: 36415; 80053; 84153; 84403; 85025; 93971

== ENCOUNTER 2023-09-29 13:38 | Outpatient (REF) | payer MEDICARE, SELFPAY ==
[2023-09-29 15:06] LABS: Bilirubin Negative (Negative); Blood Negative (Negative); Clarity Sl Cloudy (Clear); Glucose Negative (Negative); Ketones Negative (Negative); Leukocyte Esterase Negative (Negative); Nitrite Negative (Negative); Specific Gravity >= 1.030 (1.005-1.025); Urobilinogen 0.2 mg/dL (Up to 0.2); pH 5.5 (5-8)
[2023-09-29 15:13] LABS: Bacteria Rare HPF (Negative); Epithelial Cells Rare HPF (Negative); RBC Negative HPF (0-2)
[2023-09-29 15:14] LABS: C & S Indicated? Yes; Casts Negative LPF (Negative); Crystals Mod Calcium Oxalate HPF (Negative); Mucus Heavy (Negative)
== END 2023-09-29 13:39 | disposition home or self-care (01) ==
LOC: LBN 13:38
PROVIDERS: PCP Family Medicine; Visit Provider Radiology Radiation Oncology
DX: C61 Malignant neoplasm of prostate (principal)
CPT/HCPCS: 81003; 81015; 87086

== ENCOUNTER 2023-11-08 15:42 | Outpatient (REF) | payer MEDICARE, MEDICAID, SELFPAY ==
[2023-11-08 15:00] LABS: Abs Immature Grans 0.02 10^3/uL (0.0-0.06); Absolute Basophil Count 0.03 10^3/uL (0.0-0.2); Absolute Eosinophil Count 0.12 10^3/uL (0.0-0.7); Absolute Lymphocyte Count 1.03 10^3/uL (1.2-3.4); Absolute Monocyte Count 0.82 10^3/uL (0.1-0.8); Absolute Neutrophil Count 5.35 10^3/uL (1.2-6.7); Basophils % 0.4; Eosinophils % 1.6; HCT 38.1 % (40.0-50.0); HGB 12.9 g/dL (13.5-17.5); Immature Grans % 0.3; MCH 30.4 pg (27.0-33.0); MCHC 33.9 % (32.0-36.0); MCV 90 fL (80-95); MPV 10.9 fL (8.0-11.0); Monocytes % 11.1; Neutrophils % 72.6; Platelet Count 337 10^3/uL (130-400); RBC 4.25 10^6/uL (4.36-5.78); RDW 11.8 % (11.8-14.1); RDW-SD 38.3 fL; WBC 7.37 10^3/uL (4.4-10.8)
== END 2023-11-08 15:43 | disposition home or self-care (01) ==
LOC: NCHCN 15:42
PROVIDERS: PCP Family Medicine; Visit Provider Family Medicine
DX: M10.9 Gout, unspecified (principal)
CPT/HCPCS: 84550; 85025

== ENCOUNTER 2024-03-10 09:40 | Outpatient (CLI) | payer MEDICARE, SELFPAY ==
[2024-03-10 09:43] LABS: Abs Immature Grans 0.01 10^3/uL (0.0-0.06); Absolute Basophil Count 0.04 10^3/uL (0.0-0.2); Absolute Eosinophil Count 0.14 10^3/uL (0.0-0.7); Absolute Lymphocyte Count 1.88 10^3/uL (1.2-3.4); Absolute Monocyte Count 0.51 10^3/uL (0.1-0.8); Absolute Neutrophil Count 2.76 10^3/uL (1.2-6.7); Basophils % 0.7 %; Eosinophils % 2.6 %; HCT 40.7 % (40.0-50.0); HGB 13.7 g/dL (13.5-17.5); Immature Grans % 0.2 %; Lymphocytes % 35.2 %; MCH 30.3 pg (27.0-33.0); MCHC 33.7 % (32.0-36.0); MCV 90 fL (80-95); MPV 9.4 fL (8.0-11.0); Monocytes % 9.6 %; Neutrophils % 51.7 %; Platelet Count 277 10^3/uL (130-400); RBC 4.52 10^6/uL (4.36-5.78); RDW 12.5 % (11.8-14.1); WBC 5.34 10^3/uL (4.4-10.8)
[2024-03-10 09:58] LABS: ALT 24 U/L (16-63); AST 16 U/L (15-37); Albumin 3.7 g/dL (3.4-5.0); Alkaline Phosphatase 137 U/L (46-116); Anion Gap 9.5 mmol/L (3-11); BUN 21 mg/dL (7-18); Bilirubin, Total 0.4 mg/dL (0.2-1.0); CO2 27.5 mmol/L (21.0-32.0); CREATININE 0.8 mg/dL (0.70-1.30); Calcium 9.5 mg/dL (8.5-10.1); Chloride 102 mmol/L (98-107); Estimated GFR 97.61 (mL/min/1.73m2); Glucose 111 mg/dL (74-106); Potassium 3.7 mmol/L (3.5-5.1); Sodium 139 mmol/L (136-145); Total Protein 7.7 g/dL (6.4-8.2)
[2024-03-13 13:21] LABS: PSA, Ultrasensitive 0.03 ng/mL (<= 4.5)
[2024-03-15 16:10] LABS: Testosterone, Total 10 ng/dL (240-950)
== END 2024-03-10 09:41 | disposition home or self-care (01) ==
LOC: LBO 09:51
PROVIDERS: PCP Family Medicine; Visit Provider Nurse Practitioner
DX: C61 Malignant neoplasm of prostate (principal); C77.5 Secondary and unspecified malignant neoplasm of intrapelvic lymph nodes
CPT/HCPCS: 36415; 80053; 84153; 84403; 85025

== ENCOUNTER 2024-06-09 09:49 | Outpatient (CLI) | payer MEDICARE, SELFPAY ==
[2024-06-09 09:22] LABS: Abs Immature Grans 0.01 10^3/uL (0.0-0.06); Absolute Basophil Count 0.04 10^3/uL (0.0-0.2); Absolute Eosinophil Count 0.21 10^3/uL (0.0-0.7); Absolute Lymphocyte Count 1.97 10^3/uL (1.2-3.4); Absolute Monocyte Count 0.56 10^3/uL (0.1-0.8); Absolute Neutrophil Count 2.71 10^3/uL (1.2-6.7); Basophils % 0.7 %; Eosinophils % 3.8 %; HCT 40.5 % (40.0-50.0); HGB 13.7 g/dL (13.5-17.5); Immature Grans % 0.2 %; Lymphocytes % 35.8 %; MCH 30.6 pg (27.0-33.0); MCHC 33.8 % (32.0-36.0); MCV 91 fL (80-95); MPV 9.4 fL (8.0-11.0); Monocytes % 10.2 %; Neutrophils % 49.3 %; Platelet Count 272 10^3/uL (130-400); RBC 4.47 10^6/uL (4.36-5.78); RDW 12.2 % (11.8-14.1); RDW-SD 40.4 fL
[2024-06-09 09:36] LABS: ALT 21 U/L (16-63); AST 18 U/L (15-37); Albumin 3.8 g/dL (3.4-5.0); Alkaline Phosphatase 136 U/L (46-116); Anion Gap 6.7 mmol/L (3-11); BUN 16 mg/dL (7-18); CO2 29.3 mmol/L (21.0-32.0); CREATININE 0.9 mg/dL (0.70-1.30); Calcium 9.8 mg/dL (8.5-10.1); Chloride 101 mmol/L (98-107); Estimated GFR 94.19 (mL/min/1.73m2); Glucose 101 mg/dL (74-106); Potassium 3.8 mmol/L (3.5-5.1); Sodium 137 mmol/L (136-145); Total Protein 7.5 g/dL (6.4-8.2)
[2024-06-12 15:14] LABS: PSA, Ultrasensitive 0.02 ng/mL (<= 4.5)
[2024-06-14 12:23] LABS: Testosterone, Total 9.8 ng/dL (240-950)
== END 2024-06-09 09:50 | disposition home or self-care (01) ==
LOC: LBO 09:49
PROVIDERS: PCP Family Medicine; Visit Provider Nurse Practitioner
DX: C61 Malignant neoplasm of prostate (principal)
CPT/HCPCS: 36415; 80053; 84153; 84403; 85025

== ENCOUNTER 2024-09-05 02:36 | Outpatient (CLI) | payer MEDICARE, SELFPAY ==
[2024-09-05 13:43] LABS: Abs Immature Grans 0.02 10^3/uL (0.0-0.06); Absolute Basophil Count 0.04 10^3/uL (0.0-0.2); Absolute Eosinophil Count 0.15 10^3/uL (0.0-0.7); Absolute Lymphocyte Count 1.97 10^3/uL (1.2-3.4); Absolute Monocyte Count 0.56 10^3/uL (0.1-0.8); Absolute Neutrophil Count 4.96 10^3/uL (1.2-6.7); Basophils % 0.5 %; Eosinophils % 1.9 %; HCT 37.8 % (40.0-50.0); Immature Grans % 0.3 %; Lymphocytes % 25.6 %; MCH 30.4 pg (27.0-33.0); MCHC 34.4 % (32.0-36.0); MCV 88 fL (80-95); MPV 9.4 fL (8.0-11.0); Monocytes % 7.3 %; Neutrophils % 64.4 %; Platelet Count 292 10^3/uL (130-400); RBC 4.28 10^6/uL (4.36-5.78); RDW 12.1 % (11.8-14.1); RDW-SD 38.9 fL
[2024-09-05 13:50] LABS: ALT 22 U/L (16-63); AST 13 U/L (15-37); Albumin 3.5 g/dL (3.4-5.0); Alkaline Phosphatase 140 U/L (46-116); Anion Gap 10.2 mmol/L (3-11); BUN 20 mg/dL (7-18); Bilirubin, Total 0.47 mg/dL (0.2-1.0); CO2 25.8 mmol/L (21.0-32.0); CREATININE 1.1 mg/dL (0.70-1.30); Calcium 9.6 mg/dL (8.5-10.1); Chloride 101 mmol/L (98-107); Estimated GFR 73.58 (mL/min/1.73m2); Glucose 128 mg/dL (74-106); Potassium 3.7 mmol/L (3.5-5.1); Sodium 137 mmol/L (136-145); Total Protein 7.4 g/dL (6.4-8.2)
[2024-09-07 17:11] LABS: PSA, Ultrasensitive 0.04 ng/mL (<= 4.5)
[2024-09-08 15:00] LABS: Testosterone, Total 86 ng/dL (240-950)
== END 2024-09-05 02:37 | disposition home or self-care (01) ==
PROVIDERS: PCP Family Medicine; Visit Provider Nurse Practitioner
DX: C61 Malignant neoplasm of prostate (principal); C77.5 Secondary and unspecified malignant neoplasm of intrapelvic lymph nodes
CPT/HCPCS: 36415; 80053; 84153; 84403; 85025

== ENCOUNTER 2024-12-15 00:51 | Outpatient (CLI) | payer MEDICARE, SELFPAY ==
[2024-12-15 10:50] LABS: Abs Immature Grans 0.01 10^3/uL (0.0-0.06); Absolute Basophil Count 0.04 10^3/uL (0.0-0.2); Absolute Eosinophil Count 0.21 10^3/uL (0.0-0.7); Absolute Lymphocyte Count 2.24 10^3/uL (1.2-3.4); Absolute Monocyte Count 0.71 10^3/uL (0.1-0.8); Absolute Neutrophil Count 4.12 10^3/uL (1.2-6.7); Basophils % 0.5 %; Eosinophils % 2.9 %; HCT 42.6 % (40.0-50.0); HGB 14.2 g/dL (13.5-17.5); Immature Grans % 0.1 %; Lymphocytes % 30.6 %; MCH 29.9 pg (27.0-33.0); MCHC 33.3 % (32.0-36.0); MCV 90 fL (80-95); MPV 9.3 fL (8.0-11.0); Monocytes % 9.7 %; Neutrophils % 56.2 %; Platelet Count 318 10^3/uL (130-400); RBC 4.75 10^6/uL (4.36-5.78); RDW 12.2 % (11.8-14.1); RDW-SD 40.5 fL; WBC 7.33 10^3/uL (4.4-10.8)
[2024-12-15 11:05] LABS: ALT 21 U/L (16-63); AST 16 U/L (15-37); Albumin 3.6 g/dL (3.4-5.0); Alkaline Phosphatase 147 U/L (46-116); Anion Gap 8.6 mmol/L (3-11); BUN 18 mg/dL (7-18); Bilirubin, Total 0.53 mg/dL (0.2-1.0); CO2 28.4 mmol/L (21.0-32.0); CREATININE 1.1 mg/dL (0.70-1.30); Calcium 9.6 mg/dL (8.5-10.1); Chloride 103 mmol/L (98-107); Estimated GFR 73.58 (mL/min/1.73m2); Glucose 104 mg/dL (74-106); Potassium 4.1 mmol/L (3.5-5.1); Sodium 140 mmol/L (136-145); Total Protein 7.7 g/dL (6.4-8.2)
[2024-12-19 15:03] LABS: Testosterone, Total 348 ng/dL (240-950)
== END 2024-12-15 00:52 | disposition home or self-care (01) ==
PROVIDERS: PCP Family Medicine; Visit Provider Internal Medicine
DX: C61 Malignant neoplasm of prostate (principal); C77.5 Secondary and unspecified malignant neoplasm of intrapelvic lymph nodes
CPT/HCPCS: 36415; 80053; 84153; 84403; 85025

== ENCOUNTER 2025-04-05 11:08 | Outpatient (CLI) | payer MEDICARE, SELFPAY ==
[2025-04-05 11:09] LABS: Abs Immature Grans 0.03 10^3/uL (0.0-0.06); Absolute Basophil Count 0.04 10^3/uL (0.0-0.2); Absolute Eosinophil Count 0.19 10^3/uL (0.0-0.7); Absolute Lymphocyte Count 1.98 10^3/uL (1.2-3.4); Absolute Monocyte Count 0.53 10^3/uL (0.1-0.8); Absolute Neutrophil Count 3.86 10^3/uL (1.2-6.7); Basophils % 0.6 %; Eosinophils % 2.9 %; HGB 13.7 g/dL (13.5-17.5); Immature Grans % 0.5 %; Lymphocytes % 29.9 %; MCH 29.5 pg (27.0-33.0); MCHC 33.4 % (32.0-36.0); MCV 88 fL (80-95); MPV 9.9 fL (8.0-11.0); Neutrophils % 58.1 %; Platelet Count 300 10^3/uL (130-400); RBC 4.64 10^6/uL (4.36-5.78); RDW 13.3 % (11.8-14.1); RDW-SD 43.2 fL; WBC 6.63 10^3/uL (4.4-10.8)
[2025-04-05 11:48] LABS: ALT 18 U/L (16-63); AST 14 U/L (15-37); Albumin 3.6 g/dL (3.4-5.0); Alkaline Phosphatase 117 U/L (46-116); BUN 21 mg/dL (7-18); Bilirubin, Total 0.7 mg/dL (0.2-1.0); CREATININE 0.9 mg/dL (0.70-1.30); Chloride 101 mmol/L (98-107); Estimated GFR 93.61 (mL/min/1.73m2); Glucose 137 mg/dL (74-106); Potassium 3.5 mmol/L (3.5-5.1); Sodium 136 mmol/L (136-145); Total Protein 7.4 g/dL (6.4-8.2)
[2025-04-07 10:26] LABS: PSA, Ultrasensitive 0.21 ng/mL (<= 4.5)
[2025-04-12 10:09] LABS: Testosterone, Total 373 ng/dL (240-950)
== END 2025-04-05 11:09 | disposition home or self-care (01) ==
LOC: LBO 11:09
PROVIDERS: PCP Family Medicine; Visit Provider Internal Medicine
DX: C61 Malignant neoplasm of prostate (principal); C77.5 Secondary and unspecified malignant neoplasm of intrapelvic lymph nodes
CPT/HCPCS: 36415; 80053; 84153; 84403; 85025